=== PATIENT | male | born 1960 | race African-American/Black ===

== ENCOUNTER 2016-03-14 10:37 | Inpatient (IN) | payer OTHER ==
[2016-03-14 11:07] VITALS: BMI 25.7
--- NOTE | 2016-03-14 14:56 | HP ---
CIWA Score - CIWA Score Nausea/Vomitin-No Nausea/No Vomiting Muscle Tremors: 4-Moderate,w/Arms Extend Anxiety: 3 Agitation: 4-Moderately Restless Paroxysmal Sweats: 3 Orientation: 0-Oriented Tacttile Disturbances: 0-None Auditory Disturbances: 0-None Visual Disturbances: 0-None Headache: 1-Very Mild CIWA-Ar Total Score: 15 Admission ROS BHS - HPI Chief Complaint: I am here to detox. Allergies/Adverse Reactions: Allergies Allergy/AdvReac Type Severity Reaction Status Date / Time No Known Allergies Allergy Verified 03/14/16 11:37 History of Present Illness: pt is a 55yr old male with a history of alcohol and cocaine dependence seeking detox for treatment. pt is also on a mmtp gets 100mg last dose taken yesterday and verified of dose done. Exam Limitations: No Limitations - Ebola screening Have you traveled outside of the country in the last 21 days: No Have you had contact with anyone from an Ebola affected area: No Have you been sick,other than usual withdrawal symptoms: No - Review of Systems Constitutional: Chills, Diaphoresis, Loss of Appetite, Unintentional Wgt. Loss EENT: reports: No Symptoms Reported Respiratory: reports: No Symptoms reported Cardiac: reports: No Symptoms Reported GI: reports: Constipated, Poor Appetite, Poor Fluid Intake : reports: No Symptoms Reported Musculoskeletal: reports: Back Pain Integumentary: reports: Flushing, Sweating Neuro: reports: Headache, Tremors Endocrine: reports: Excessive Sweating, Flushing, Intolerance to Cold, Intolerance to Heat Hematology: reports: No Symptoms Reported Psychiatric: reports: No Sypmtoms Reported, Judgement Intact, Mood/Affect Appropiate, Orientated x3, Agitated, Anxious Other Systems: Reviewed and Negative Patient History - Patient Medical History Hx Anemia: No Hx Asthma: No Hx Chronic Obstructive Pulmonary Disease (COPD): No Hx Cancer: No Hx Cardiac Disorders: No Hx Congestive Heart Failure: No Hx Hypertension: Yes Hx Hypercholesterolemia: No Hx Pacemaker: No HX Cerebrovascular Accident: No Hx Seizures: No Hx Dementia: No Hx Diabetes: No Hx Gastrointestinal Disorders: Yes (acid reflux) Hx Liver Disease: No Hx Genitourinary Disorders: No Hx Sexually Transmitted Disorders: No Hx Renal Disease (ESRD): No Hx Thyroid Disease: No Hx Human Immunodeficiency Virus (HIV): No (03/28 last negative) Hx Hepatitis C: Yes (2004) Hx Depression: Yes Hx Suicide Attempt: No (denies) Hx Bipolar Disorder: Yes (no medication) Hx Schizophrenia: No - Patient Surgical History Past Surgical History: Yes Hx Neurologic Surgery: No Hx Cataract Extraction: No Hx Cardiac Surgery: No Hx Lung Surgery: No Hx Breast Surgery: No Hx Breast Biopsy: No Hx Abdominal Surgery: Yes (splenectomy at age 17) Hx Appendectomy: No Hx Cholecystectomy: No Hx Genitourinary Surgery: No Hx Section: No Hx Orthopedic Surgery: No Anesthesia Reaction: No - PPD History Previous Implant?: Yes Documented Results: Positive w/o proof PPD to be Administered?: No - Reproductive History Patient is a Female of Child Bearing Age (11 -55 yrs old): No - Smoking Cessation Smoking history: Current every day smoker Have you smoked in the past 12 months: Yes Aproximately how many cigarettes per day: 10 Hx Chewing Tobacco Use: No Initiated information on smoking cessation: Yes 'Breaking Loose' booklet given: 03/14/16 - Substance & Tx. History Hx Alcohol Use: Yes Hx Substance Use: Yes Substance Use Type: Alcohol, Cocaine Hx Substance Use Treatment: Yes - Substances Abused Cocaine Route: Inhalation Frequency: Daily Amount used: $30 Age of first use: 17 Date of Last Use: 03/13/16 Heroin Route: Inhalation Frequency: Daily Amount used: 2 bags Age of first use: 17 Date of Last Use: 03/13/16 Alcohol-beer/vodka Route: Oral Frequency: Daily Amount used: 2-6 pks./3 pts. Age of first use: 10 Date of Last Use: 03/13/16 Family Disease History - Family Disease History Family Disease History: Other: Father (alcohol,), Mother (alcohol, ) Admission Physical Exam BHS - Vital Signs Vital Signs: Vital Signs - 24 hr 03/14/16 11:01 Temperature 96.4 F L Pulse Rate 61 Respiratory 18 Rate Blood Pressure 154/96 - Physical General Appearance: Yes: Appropriately Dressed, Moderate Distress, Tremorous, Irritable, Sweating, Anxious HEENTM: Yes: Normal Voice, Nasal Congestion Respiratory: Yes: Lungs Clear, Normal Breath Sounds, No Respiratory Distress Neck: Yes: No masses,lesions,Nodules Breast: Yes: Within Normal Limits Cardiology: Yes: Regular Rhythm, Regular Rate, S1, S2 Abdominal: Yes: Normal Bowel Sounds, Soft Genitourinary: Yes: Within Normal Limits Back: Yes: Normal Inspection Musculoskeletal: Yes: full range of Motion Extremities: Yes: Normal Capillary Refill, Normal Inspection, Non-Tender, Tremors Neurological: Yes: Fully Oriented, Alert, Normal Response Integumentary: Yes: Normal Color, Diaphoresis Lymphatic: Yes: Within Normal Limits - Diagnostic (1) Alcohol dependence with uncomplicated withdrawal Current Visit: Yes Status: Chronic (2) Cocaine dependence Current Visit: Yes Status: Chronic Qualifiers: Substance use status: uncomplicated Qualified Code(s): F14.20 - Cocaine dependence, uncomplicated (3) GERD (gastroesophageal reflux disease) Current Visit: Yes Status: Chronic Qualifiers: Esophagitis presence: without esophagitis Qualified Code(s): K21.9 - Gastro-esophageal reflux disease without esophagitis (4) HTN (hypertension) Current Visit: Yes Status: Chronic Qualifiers: Hypertension type: essential hypertension Qualified Code(s): I10 - Essential (primary) hypertension (5) Hepatitis C Current Visit: Yes Status: Chronic Qualifiers: Viral hepatitis chronicity: chronic Hepatic coma status: without hepatic coma Qualified Code(s): B18.2 - Chronic viral hepatitis C (6) Methadone maintenance therapy patient Current Visit: Yes Status: Chronic Comment: dose verified with 100mg (7) Nicotine dependence Current Visit: Yes Status: Chronic Qualifiers: Nicotine product type: cigarettes Substance use status: uncomplicated Qualified Code(s): F17.210 - Nicotine dependence, cigarettes, uncomplicated (8) Positive PPD Current Visit: No Status: Chronic Cleared for Admission [facility] - Detox or Rehab [facility] Level of Care: Medically Managed Detox Regimen/Protocol: Librium [facility] Breath Alcohol Content Breath Alcohol Content: 0 Urine Drug Screen - Results Drug Screen Negative: No Urine Drug Screen Results: FAIZA-Cocaine, OPI-Opiates, MTD-Methadone
[2016-03-14] MEDS ORDERED: P-EPHED 60MG/TRIPROLIDI 2.5MG TABLET PO PRN (15:01)
[2016-03-14] MEDS ORDERED: hydrOXYzine PAMOATE 50 MG CAPSULE (FP) PO PRN (15:01)
[2016-03-14] MEDS ORDERED: MENTHOL/PHENOL 1 EACH UD MM PRN (15:01)
[2016-03-14] MEDS ORDERED: MAGNESIUM HYDROX 2400MG/30ML ORAL SUSPENSION 30 ML CUP PO PRN (15:01)
[2016-03-14] MEDS ORDERED: NICOTINE POLACRILEX 4 MG GUM BUC PRN (15:01)
[2016-03-14] MEDS ORDERED: MAG HYDROX/AL HYDROX/SIMETH 30 ML UNIT-DOSE CUP PO PRN (15:01)
[2016-03-14] MEDS ORDERED: MAGNESIUM CITRATE 300 ML BOTTLE PO PRN (15:01)
[2016-03-14] MEDS ORDERED: IBUPROFEN 400 MG TABLET (FP) PO PRN (15:01)
[2016-03-14] MEDS ORDERED: ACETAMINOPHEN 325 MG TABLET (FP) PO PRN (15:01)
[2016-03-14] MEDS ORDERED: LOPERAMIDE HCL 2 MG CAPSULE PO PRN (15:01)
[2016-03-14] MEDS ORDERED: chlordiazePOXIDE HCL 25 MG CAPSULE PO PRN (15:01)
[2016-03-14] MEDS ORDERED: guaiFENesin/D-METHORPHAN HB 10 ML UNIT-DOSE CUPS PO PRN (15:01)
[2016-03-14] MEDS ORDERED: METHADONE HCL 10 MG TABLET PO ONE (15:06)
[2016-03-14] MEDS ORDERED: chlordiazePOXIDE HCL 25 MG CAPSULE PO ONE (15:24)
[2016-03-14] MEDS ORDERED: METHADONE 80 MG, METHADONE 20 MG PO ONE (15:35)
[2016-03-14] MEDS ORDERED: METHADONE HCL 10 MG TABLET ONE (15:41)
[2016-03-14] MEDS ORDERED: METHADONE HCL 40 MG DISPERSABLE TABLET ONE (15:41)
[2016-03-14] MEDS: chlordiazePOXIDE HCL 25 MG CAPSULE PO SCH ×2 (18:29→22:57)
[2016-03-14 20:38] LABS: URINE APPEARANCE SLCLOUDY; URINE BILIRUBIN NEGATIVE (NEGATIVE); URINE BLOOD NEGATIVE (NEGATIVE); URINE COLOR YELLOW; URINE GLUCOSE (UA) NEGATIVE (NEGATIVE); URINE KETONE NEGATIVE (NEGATIVE); URINE LEUK ESTERASE NEGATIVE (NEGATIVE); URINE NITRITE NEGATIVE (NEGATIVE); URINE UROBILINOGEN 4.0 E.U/dl E.U./dl (0.2-1.0)
[2016-03-14 20:44] LABS: URINE PROTEIN 2+ (NEGATIVE)
[2016-03-14 20:47] LABS: URINE BACTERIA MANY /hpf (NONE SEEN); URINE HYALINE CAST 1 /lpf; URINE MUCUS FEW; URINE RBC 2 /hpf (0-3); URINE WBC 4 /hpf (3-5)
[2016-03-14] MEDS: THIAMINE HCL 100 MG TABLET (FP) PO SCH (22:57)
[2016-03-15] MEDS: chlordiazePOXIDE HCL 25 MG CAPSULE PO SCH ×4 (05:42→22:37)
[2016-03-15] MEDS ORDERED: METHADONE HCL 10 MG TABLET ONE (05:44)
[2016-03-15] MEDS: METHADONE 80 MG, METHADONE 20 MG PO SCH (05:45)
[2016-03-15] MEDS ORDERED: METHADONE HCL 40 MG DISPERSABLE TABLET ONE (05:45)
[2016-03-15] MEDS ORDERED: METHADONE HCL 40 MG DISPERSABLE TABLET PO SCH (06:00)
--- NOTE | 2016-03-15 08:03 | CONSULT ---
[facility] Psychiatric Consult - Data Date of interview: 03/15/16 Admission source: [facility] Identifying data: This is 55 years old male with history of Bipolar disorder, MMTP with current dose of 100mg poqd, intoxicated with: Alcohol, Heroin, Cocaine and Nicotine Substance Abuse History: - Smoking Cessation. Smoking history: Current every day smoker. Have you smoked in the past 12 months: Yes. Aproximately how many cigarettes per day: 10. Hx Chewing Tobacco Use: No. Initiated information on smoking cessation: Yes. 'Breaking Loose' booklet given: 03/14/16. - Substance & Tx. History. Hx Alcohol Use: Yes. Hx Substance Use: Yes. Substance Use Type : Alcohol, Cocaine. Hx Substance Use Treatment: Yes. - Substances Abused. Cocaine. Route: Inhalation. Frequency: Daily. Amount used: $30. Age of first use: 17. Date of Last Use: 03/13/16. Heroin. Route: Inhalation. Frequency: Daily. Amount used: 2 bags. Age of first use: 17. Date of Last Use : 03/13/16. Alcohol-beer/vodka. Route: Oral. Frequency: Daily. Amount used: 2-6 pks./3 pts. Age of first use: 10. Date of Last Use: 03/13/16 Medical History: GERD, HepC+, HTN, Positive history of PPD, mmtp 100mg per day Psychiatric History: As per computer patient has a history of Bipolar disorder and taking medications: Zoloft n50mg poqd. Seroquel 100mg poqd. At this point patient is oversedated and can not start his regular medications Physical/Sexual Abuse/Trauma History: Unclear Additional Comment: Observation. Detox Unit Care Protocol Mental Status Exam - Mental Status Exam Alert and Oriented to: Person Cognitive Function: Fair Patient Appearance: Unkempt Mood: Sad Affect: Flat Patient Behavior: Sedated Speech Pattern: Delayed Voice Loudness: Severely Soft/Quiet Thought Process: Circumstantial, Tangential Thought Disorder: Present Hallucinations: Denies Suicidal Ideation: Denies Homicidal Ideation: Denies Insight/Judgement: Impaired Sleep: Difficulty falling asleep Appetite: Weight loss Muscle strength/Tone: Moderate Hypotonicity Gait/Station: Deferred Additional Comments: Observation. Detox Unit Care Protocol. Zoloft n50mg poqd. Seroquel 100mg poqd. At this point patient is oversedated and can not start his regular medications Psychiatric Findings - Problem List ([place] 1, 2,3) (1) Alcohol dependence with uncomplicated withdrawal Current Visit: Yes Status: Chronic (2) Cocaine dependence Current Visit: Yes Status: Chronic Qualifiers: Substance use status: uncomplicated Qualified Code(s): F14.20 - Cocaine dependence, uncomplicated (3) Methadone maintenance therapy patient Current Visit: Yes Status: Chronic Comment: dose verified with 100mg (4) Nicotine dependence Current Visit: Yes Status: Chronic Qualifiers: Nicotine product type: cigarettes Substance use status: uncomplicated Qualified Code(s): F17.210 - Nicotine dependence, cigarettes, uncomplicated (5) Bipolar disorder Current Visit: Yes Status: Acute - Initial Treatment Plan Initial Treatment Plan: Observation. Detox Unit Care Protocol. Zoloft n50mg poqd. Seroquel 100mg poqd. At this point patient is oversedated and can not start his regular medications
[2016-03-15 10:12] LABS: MCHC 33.6 g/dl (32.0-35.9); MEAN CELL VOLUME 89.2 fl (80-96); MEAN PLT VOLUME 7.9 fl (7.5-11.1); PLATELET COUNT 367 K/MM3 (134-434); RDW 13.5 % (11.9-15.9); WHITE BLOOD COUNT 7.2 K/mm3 (4.0-10.0)
[2016-03-15] MEDS: PRENATAL VITAMINS W/ FOLIC ACID TABLET (FP) PO SCH (10:25)
[2016-03-15] MEDS: LISINOPRIL 10 MG TABLET (FP) PO SCH (10:25)
[2016-03-15] MEDS: NICOTINE 21 MG/24 HOURS TOPICAL PATCH TD SCH (10:26)
[2016-03-15] MEDS: amLODIPine BESYLATE 5 MG TABLET (FP) PO SCH (10:26)
--- NOTE | 2016-03-15 10:36 | PN ---
S CIWA - CIWA Score Nausea/Vomitin-No Nausea/No Vomiting Muscle Tremors: 4-Moderate,w/Arms Extend Anxiety: 3 Agitation: 4-Moderately Restless Paroxysmal Sweats: 3 Orientation: 0-Oriented Tacttile Disturbances: 0-None Auditory Disturbances: 0-None Visual Disturbances: 0-None Headache: 0-None Present CIWA-Ar Total Score: 14 BHS Progress Note (SOAP) Subjective: sleepy interrupted sleep irritable agitation sweats Objective: 03/15/16 10:34 Vital Signs Temperature 97.9 F 03/15/16 09:32 Pulse Rate 55 L 03/15/16 09:32 Respiratory Rate 18 03/15/16 09:32 Blood Pressure 125/64 03/15/16 09:32 O2 Sat by Pulse Oximetry (%) Laboratory Tests 03/14/16 03/15/16 14:00 06:00 WBC 7.2 RBC 4.48 Hgb 13.4 Hct 40.0 MCV 89.2 MCHC 33.6 RDW 13.5 Plt Count 367 MPV 7.9 Urine Color Yellow Urine Appearance Slcloudy Urine pH 5.0 Ur Specific [place] 1.025 Urine Protein 2+ H Urine Glucose (UA) Negative Urine Ketones Negative Urine Blood Negative Urine Nitrite Negative Urine Bilirubin Negative Urine Urobilinogen 4.0 e.u/dl Ur Leukocyte Esterase Negative Urine RBC 2 Urine WBC 4 Ur Epithelial Cells Rare Urine Bacteria Many Hyaline Casts 1 Urine Mucus Few awake/alert ambulating no acute distress labs pending Assessment: 03/15/16 10:35 withdrawal sx Plan: continue detox increase fluids labs pending
[2016-03-15 10:53] LABS: ALBUMIN 3.2 g/dl (3.4-5.0); ALK PHOS 132 U/L (45-117); ANION GAP 11 (8-16); BILIRUBIN,TOTAL 0.3 mg/dL (0.2-1.0); CALCIUM 8.8 mg/dL (8.5-10.1); CO2 28 mmol/L (21-32); CREATININE 0.9 mg/dL (0.7-1.3); GLUCOSE,RANDOM 133 mg/dL (74-106); SGOT/AST 47 U/L (15-37); SGPT/ALT 45 U/L (12-78); TOT PROT 7.7 g/dl (6.4-8.2)
--- NOTE | 2016-03-15 17:39 | EKG ---
Test Reason : Blood Pressure : / mmHG Vent. Rate : 056 BPM Atrial Rate : 056 BPM P-R Int : 180 ms QRS Dur : 090 ms QT Int : 492 ms P-R-T Axes : 028 026 174 degrees QTc Int : 474 ms SINUS BRADYCARDIA T WAVE ABNORMALITY, CONSIDER ANTEROLATERAL ISCHEMIA PROLONGED QT ABNORMAL ECG NO PREVIOUS ECGS AVAILABLE Confirmed by GEORGE SOTO MD ([id number]) on 03/15/2016 5:39:14 PM Referred By: Confirmed By:GEORGE SOTO MD
[2016-03-15] MEDS: THIAMINE HCL 100 MG TABLET (FP) PO SCH (22:37)
[2016-03-16] MEDS ORDERED: METHADONE HCL 10 MG TABLET ONE (04:21)
[2016-03-16] MEDS ORDERED: METHADONE HCL 40 MG DISPERSABLE TABLET ONE (04:21)
[2016-03-16] MEDS: METHADONE 80 MG, METHADONE 20 MG PO SCH (05:32)
[2016-03-16] MEDS: chlordiazePOXIDE HCL 25 MG CAPSULE PO SCH ×2 (05:32→10:31)
[2016-03-16] MEDS: amLODIPine BESYLATE 5 MG TABLET (FP) PO SCH (10:29)
[2016-03-16] MEDS: LISINOPRIL 10 MG TABLET (FP) PO SCH (10:29)
[2016-03-16] MEDS: NICOTINE 21 MG/24 HOURS TOPICAL PATCH TD SCH (10:29)
[2016-03-16] MEDS: PRENATAL VITAMINS W/ FOLIC ACID TABLET (FP) PO SCH (10:29)
--- NOTE | 2016-03-16 11:15 | PN ---
S CIWA - CIWA Score Nausea/Vomitin Muscle Tremors: 3 Anxiety: 2 Agitation: 2 Paroxysmal Sweats: 1-Minimal Palms Moist Orientation: 0-Oriented Tacttile Disturbances: 1-Very Mild Itch/Numbness Auditory Disturbances: 1-Very Mild Visual Disturbances: 1-Very Mild Sensitivity Headache: 2-Mild CIWA-Ar Total Score: 16 S Progress Note (SOAP) Subjective: ALERT,IRRITABLE,ANXIOUS,INTERRUPTED SLEEP,TREMOR Objective: 03/16/16 11:13 Vital Signs Temperature 97.5 F L 03/16/16 06:00 Pulse Rate 44 L 03/16/16 06:00 Respiratory Rate 18 03/16/16 06:00 Blood Pressure 136/72 03/16/16 06:00 O2 Sat by Pulse Oximetry (%) Laboratory Last Values WBC 7.2 K/mm3 (4.0-10.0) 03/15/16 06:00 RBC 4.48 M/mm3 (4.00-5.60) 03/15/16 06:00 Hgb 13.4 GM/dL (11.7-16.9) 03/15/16 06:00 Hct 40.0 % (35.4-49) 03/15/16 06:00 MCV 89.2 fl (80-96) 03/15/16 06:00 MCHC 33.6 g/dl (32.0-35.9) 03/15/16 06:00 RDW 13.5 % (11.9-15.9) 03/15/16 06:00 Plt Count 367 K/MM3 (134-434) 03/15/16 06:00 MPV 7.9 fl (7.5-11.1) 03/15/16 06:00 Sodium 142 mmol/L (136-145) 03/15/16 06:00 Potassium 4.2 mmol/L (3.5-5.1) 03/15/16 06:00 Chloride 103 mmol/L (98-107) 03/15/16 06:00 Carbon Dioxide 28 mmol/L (21-32) 03/15/16 06:00 Anion Gap 11 (8-16) 03/15/16 06:00 BUN 14 mg/dL (7-18) 03/15/16 06:00 Creatinine 0.9 mg/dL (0.7-1.3) 03/15/16 06:00 Creat Clearance w eGFR > 60 (>60) 03/15/16 06:00 Random Glucose 133 mg/dL (74-106) H D 03/15/16 06:00 Calcium 8.8 mg/dL (8.5-10.1) 03/15/16 06:00 Total Bilirubin 0.3 mg/dL (0.2-1.0) 03/15/16 06:00 AST 47 U/L (15-37) H 03/15/16 06:00 ALT 45 U/L (12-78) 03/15/16 06:00 Alkaline Phosphatase 132 U/L (45-117) H 03/15/16 06:00 Total Protein 7.7 g/dl (6.4-8.2) D 03/15/16 06:00 Albumin 3.2 g/dl (3.4-5.0) L 03/15/16 06:00 Urine Color Yellow 03/14/16 14:00 Urine Appearance Slcloudy 03/14/16 14:00 Urine pH 5.0 (5.0-8.0) 03/14/16 14:00 Ur Specific [place] 1.025 (1.001-1.035) 03/14/16 14:00 Urine Protein 2+ (NEGATIVE) H 03/14/16 14:00 Urine Glucose (UA) Negative (NEGATIVE) 03/14/16 14:00 Urine Ketones Negative (NEGATIVE) 03/14/16 14:00 Urine Blood Negative (NEGATIVE) 03/14/16 14:00 Urine Nitrite Negative (NEGATIVE) 03/14/16 14:00 Urine Bilirubin Negative (NEGATIVE) 03/14/16 14:00 Urine Urobilinogen 4.0 e.u/dl E.U./dl (0.2-1.0) 03/14/16 14:00 Ur Leukocyte Esterase Negative (NEGATIVE) 03/14/16 14:00 Urine RBC 2 /hpf (0-3) 03/14/16 14:00 Urine WBC 4 /hpf (3-5) 03/14/16 14:00 Ur Epithelial Cells Rare /hpf (FEW) 03/14/16 14:00 Urine Bacteria Many /hpf (NONE SEEN) 03/14/16 14:00 Hyaline Casts 1 /lpf 03/14/16 14:00 Urine Mucus Few 03/14/16 14:00 RPR Titer Nonreactive (NONREACTIVE) 03/15/16 06:00 Assessment: 03/16/16 11:14 WITHDRAWAL SYMPTOM Plan: CONTINUE DETOX,INITIAL GLUCOSE IS 133,BGM MONITORING,
[2016-03-16] MEDS: chlordiazePOXIDE 5 MG CAPSULE PO SCH ×2 (17:23→22:18)
[2016-03-16] MEDS: THIAMINE HCL 100 MG TABLET (FP) PO SCH (22:18)
[2016-03-16] MEDS: diphenhydrAMINE HCL 50 MG CAPSULE PO PRN (22:18)
[2016-03-17] MEDS: chlordiazePOXIDE 5 MG CAPSULE PO SCH ×2 (05:40→10:47)
[2016-03-17] MEDS ORDERED: METHADONE HCL 40 MG DISPERSABLE TABLET ONE (08:13)
[2016-03-17] MEDS ORDERED: METHADONE HCL 10 MG TABLET ONE (08:13)
[2016-03-17] MEDS: PRENATAL VITAMINS W/ FOLIC ACID TABLET (FP) PO SCH (10:45)
[2016-03-17] MEDS: METHADONE 80 MG, METHADONE 20 MG PO SCH (10:46)
[2016-03-17] MEDS: NICOTINE 21 MG/24 HOURS TOPICAL PATCH TD SCH (10:46)
[2016-03-17] MEDS: amLODIPine BESYLATE 5 MG TABLET (FP) PO SCH (10:46)
[2016-03-17] MEDS: LISINOPRIL 10 MG TABLET (FP) PO SCH (10:46)
--- NOTE | 2016-03-17 11:58 | PN ---
BHS Progress Note (SOAP) Subjective: ALERT,IRRITABLE,ANXIOUS,INTERRUPTED SLEEP Objective: 03/17/16 11:57 Vital Signs Temperature 96.9 F L 03/17/16 10:01 Pulse Rate 91 H 03/17/16 10:01 Respiratory Rate 16 03/17/16 10:01 Blood Pressure 131/83 03/17/16 10:01 O2 Sat by Pulse Oximetry (%) Assessment: 03/17/16 11:57 Vital Signs Temperature 96.9 F L 03/17/16 10:01 Pulse Rate 91 H 03/17/16 10:01 Respiratory Rate 16 03/17/16 10:01 Blood Pressure 131/83 03/17/16 10:01 O2 Sat by Pulse Oximetry (%) 03/17/16 11:57 WITHDRAWAL SYMPTOM Plan: CONTINUE DETOX,DISCHARGE IN AM
[2016-03-17] MEDS: chlordiazePOXIDE HCL 10 MG CAPSULE PO SCH ×2 (17:55→22:35)
[2016-03-17] MEDS: THIAMINE HCL 100 MG TABLET (FP) PO SCH (22:35)
[2016-03-17] MEDS: diphenhydrAMINE HCL 50 MG CAPSULE PO PRN (22:36)
[2016-03-18] MEDS ORDERED: METHADONE HCL 10 MG TABLET ONE (04:57)
[2016-03-18] MEDS ORDERED: METHADONE HCL 40 MG DISPERSABLE TABLET ONE (04:57)
[2016-03-18] MEDS: chlordiazePOXIDE HCL 10 MG CAPSULE PO SCH ×2 (05:56→10:35)
[2016-03-18] MEDS: METHADONE 80 MG, METHADONE 20 MG PO SCH (05:56)
--- NOTE | 2016-03-18 09:52 | PN ---
S Progress Note (SOAP) Subjective: ALERT,NO COMPLAINT Objective: 03/18/16 09:50 Vital Signs Temperature 97.5 F L 03/18/16 07:42 Pulse Rate 69 03/18/16 07:42 Respiratory Rate 18 03/18/16 07:42 Blood Pressure 124/72 03/18/16 07:42 O2 Sat by Pulse Oximetry (%) Assessment: 03/18/16 09:51 DETOX COMPLETED,NO WITHDRAWAL SYMPTOM Plan: DISCHARGE TODAY,FOLLOW UP WITH [facility]
--- NOTE | 2016-03-18 09:56 | DS ---
[facility] Detox Discharge Summary Admission Date: 03/14/16 Discharge Date: 03/18/16 - History Present History: Alcohol Dependence, Cocaine Dependence, MMTP Additional Comments: FOLLOW UP WITH AFTER CARE PROGRAM ,[facility] Pertinent Past History: GERD HYPERTENSION HEPATITIS C POSITIVE PPD NICOTINE DEPENDENCE - Physical Exam Results Vital Signs: Vital Signs Temperature 97.5 F L 03/18/16 07:42 Pulse Rate 69 03/18/16 07:42 Respiratory Rate 18 03/18/16 07:42 Blood Pressure 124/72 03/18/16 07:42 O2 Sat by Pulse Oximetry (%) Pertinent Admission Physical Exam Findings: WITHDRAWAL SYMPTOM - Treatment Hospital Course: Detox Protocol Followed, Detoxed Safely, Responded well, Discharged Condition Good, Rehab Referral Accepted Patient has Accepted a Rehab Referral to: [facility] - Medication Discharge Medications: Ambulatory Orders Esomeprazole Mag Trihydrate [Nexium] 20 mg PO DAILY #30 capsule. 10/25/14 Sertraline HCl [Zoloft -] 50 mg PO DAILY #30 tablet 10/25/14 Amlodipine Besylate [Norvasc -] 5 mg PO DAILY #30 tablet 07/18/15 Lisinopril [Prinivil] 10 mg PO DAILY #30 tablet 07/18/15 Quetiapine Fumarate [Seroquel] 100 tab PO HS #30 tablet 07/18/15 - AMA Did Patient Leave Against Medical Advice: No
[2016-03-18] MEDS ORDERED: PANTOPRAZOLE 40 MG TABLET (FP) PO SCH (10:00)
[2016-03-18] MEDS: LISINOPRIL 10 MG TABLET (FP) PO SCH (10:35)
[2016-03-18] MEDS: amLODIPine BESYLATE 5 MG TABLET (FP) PO SCH (10:35)
[2016-03-18] MEDS: PRENATAL VITAMINS W/ FOLIC ACID TABLET (FP) PO SCH (10:35)
[2016-03-18] MEDS: NICOTINE 21 MG/24 HOURS TOPICAL PATCH TD SCH (10:35)
[2016-03-18 18:17] VITALS: BP 116/58; PULSE 48; TEMP 98.4
== END 2016-03-18 17:20 | disposition other institution (70) | DRG 773 ==
LOC: YASAS 10:37 → Y6N 13:12
PROVIDERS: ADMIT Internal Medicine; ATTEND Internal Medicine
PROC: HZ2ZZZZ Detoxification Services for Substance Abuse Treatment (ICD-10-PCS; principal; 2016-03-18)
DX: F11.20 Opioid dependence, uncomplicated (principal); F10.230 Alcohol dependence with withdrawal, uncomplicated; F14.20 Cocaine dependence, uncomplicated; F17.210 Nicotine dependence, cigarettes, uncomplicated; F31.9 Bipolar disorder, unspecified; B18.2 Chronic viral hepatitis C; I10 Essential (primary) hypertension; K21.9 Gastro-esophageal reflux disease without esophagitis; R76.11 Nonspecific reaction to tuberculin skin test without active tuberculosis
CPT/HCPCS: 36415; 71020-TC; 80053; 81003; 81015; 85027; 86593; 93005; 93010

== ENCOUNTER 2016-03-18 17:08 | Inpatient (IN) | payer OTHER ==
[2016-03-18] MEDS ORDERED: P-EPHED 60MG/TRIPROLIDI 2.5MG TABLET PO PRN (18:43)
[2016-03-18] MEDS ORDERED: LOPERAMIDE HCL 2 MG CAPSULE PO PRN (18:43)
[2016-03-18] MEDS ORDERED: MENTHOL/PHENOL 1 EACH UD MM PRN (18:43)
[2016-03-18] MEDS ORDERED: guaiFENesin/D-METHORPHAN HB 10 ML UNIT-DOSE CUPS PO PRN (18:43)
[2016-03-18] MEDS ORDERED: MAGNESIUM HYDROX 2400MG/30ML ORAL SUSPENSION 30 ML CUP PO PRN (18:43)
[2016-03-18] MEDS ORDERED: ACETAMINOPHEN 325 MG TABLET (FP) PO PRN (18:43)
[2016-03-18] MEDS ORDERED: hydrOXYzine PAMOATE 50 MG CAPSULE (FP) PO PRN (18:43)
[2016-03-18] MEDS ORDERED: MAGNESIUM CITRATE 300 ML BOTTLE PO PRN (18:43)
[2016-03-18] MEDS ORDERED: MAG HYDROX/AL HYDROX/SIMETH 30 ML UNIT-DOSE CUP PO PRN (18:43)
[2016-03-18] MEDS ORDERED: NICOTINE POLACRILEX 2 MG GUM BUC PRN (18:47)
[2016-03-18] MEDS: THIAMINE HCL 100 MG TABLET (FP) PO SCH (22:01)
[2016-03-18] MEDS: QUEtiapine FUMARATE 100 MG TABLET (FP) PO SCH (22:02)
[2016-03-19] MEDS ORDERED: METHADONE 80 MG, METHADONE 20 MG PO SCH (06:00)
[2016-03-19] MEDS ORDERED: METHADONE HCL 10 MG TABLET PO SCH (06:00)
[2016-03-19] MEDS ORDERED: METHADONE HCL 40 MG DISPERSABLE TABLET ONE (07:08)
[2016-03-19] MEDS ORDERED: METHADONE HCL 10 MG TABLET ONE (07:09)
--- NOTE | 2016-03-19 11:54 | PN ---
[place] Progress Note Note: patient is drowsy,alter mental status Vital Signs Temperature 98.4 F 03/19/16 07:01 Pulse Rate 46 L 03/19/16 11:46 Respiratory Rate 12 03/19/16 11:46 Blood Pressure 76/49 03/19/16 11:46 O2 Sat by Pulse Oximetry (%) on methadone maintenance 100 mgs/day treatment cbc,cmp,ammonia level hold amlodipine and lisinopril close monitoring reduced methadone to 50 mgs po daily from 02/18/16
[2016-03-19] MEDS: amLODIPine BESYLATE 5 MG TABLET (FP) PO SCH (12:29)
[2016-03-19] MEDS: LISINOPRIL 10 MG TABLET (FP) PO SCH (12:29)
[2016-03-19] MEDS: PRENATAL VITAMINS W/ FOLIC ACID TABLET (FP) PO SCH (12:29)
[2016-03-19] MEDS: PANTOPRAZOLE 40 MG TABLET (FP) PO SCH (12:29)
[2016-03-19] MEDS: SERTRALINE HCL 50 MG TABLET (FP) PO SCH (12:29)
[2016-03-19 14:12] LABS: MCH 29.1 pg (25.7-33.7); MCHC 32.7 g/dl (32.0-35.9); MEAN PLT VOLUME 7.3 fl (7.5-11.1); PLATELET COUNT 341 K/MM3 (134-434); RDW 13.9 % (11.9-15.9); WHITE BLOOD COUNT 6.1 K/mm3 (4.0-10.0)
[2016-03-19 14:37] LABS: ALBUMIN 2.8 g/dl (3.4-5.0); ALK PHOS 105 U/L (45-117); ANION GAP 10 (8-16); BILIRUBIN,TOTAL 0.3 mg/dL (0.2-1.0); CALCIUM 8.9 mg/dL (8.5-10.1); CO2 26 mmol/L (21-32); GLUCOSE,RANDOM 105 mg/dL (74-106); SGOT/AST 46 U/L (15-37); SGPT/ALT 39 U/L (12-78); TOT PROT 7.1 g/dl (6.4-8.2)
--- NOTE | 2016-03-19 15:20 | PN ---
S Progress Note Note: The law writer approached to the patient today twice for the admission but patient is very sedated and unable to stand on his own, patient will be assess when is more alert.
[2016-03-19] MEDS: THIAMINE HCL 100 MG TABLET (FP) PO SCH (21:59)
[2016-03-19] MEDS: QUEtiapine FUMARATE 100 MG TABLET (FP) PO SCH (22:01)
[2016-03-20] MEDS ORDERED: METHADONE HCL 10 MG TABLET ONE (03:14)
[2016-03-20] MEDS ORDERED: METHADONE HCL 40 MG DISPERSABLE TABLET ONE (03:14)
[2016-03-20] MEDS ORDERED: METHADONE HCL 10 MG TABLET PO SCH (06:00)
[2016-03-20] MEDS: METHADONE 40 MG, METHADONE 10 MG PO SCH (06:35)
[2016-03-20] MEDS: PRENATAL VITAMINS W/ FOLIC ACID TABLET (FP) PO SCH (10:35)
[2016-03-20] MEDS: LISINOPRIL 10 MG TABLET (FP) PO SCH (10:35)
[2016-03-20] MEDS: PANTOPRAZOLE 40 MG TABLET (FP) PO SCH (10:35)
[2016-03-20] MEDS: amLODIPine BESYLATE 5 MG TABLET (FP) PO SCH (10:35)
[2016-03-20] MEDS: SERTRALINE HCL 50 MG TABLET (FP) PO SCH (10:35)
--- NOTE | 2016-03-20 11:57 | PN ---
[facility] Progress Note Note: alert,oriented x 3 much improved Laboratory Last Values WBC 6.1 K/mm3 (4.0-10.0) 03/19/16 12:25 RBC 4.47 M/mm3 (4.00-5.60) 03/19/16 12:25 Hgb 13.0 GM/dL (11.7-16.9) 03/19/16 12:25 Hct 39.8 % (35.4-49) 03/19/16 12:25 MCV 89.0 fl (80-96) 03/19/16 12:25 MCHC 32.7 g/dl (32.0-35.9) 03/19/16 12:25 RDW 13.9 % (11.9-15.9) 03/19/16 12:25 Plt Count 341 K/MM3 (134-434) 03/19/16 12:25 MPV 7.3 fl (7.5-11.1) L 03/19/16 12:25 Sodium 142 mmol/L (136-145) 03/19/16 12:25 Potassium 4.7 mmol/L (3.5-5.1) 03/19/16 12:25 Chloride 106 mmol/L (98-107) 03/19/16 12:25 Carbon Dioxide 26 mmol/L (21-32) 03/19/16 12:25 Anion Gap 10 (8-16) 03/19/16 12:25 BUN 17 mg/dL (7-18) D 03/19/16 12:25 Creatinine 1.0 mg/dL (0.7-1.3) 03/19/16 12:25 Creat Clearance w eGFR > 60 (>60) 03/19/16 12:25 POC Glucometer 101 UNITS (()) 03/20/16 06:42 Random Glucose 105 mg/dL (74-106) D 03/19/16 12:25 Calcium 8.9 mg/dL (8.5-10.1) 03/19/16 12:25 Total Bilirubin 0.3 mg/dL (0.2-1.0) 03/19/16 12:25 AST 46 U/L (15-37) H 03/19/16 12:25 ALT 39 U/L (12-78) 03/19/16 12:25 Alkaline Phosphatase 105 U/L (45-117) D 03/19/16 12:25 Ammonia 37.98 umol/L (11-32) H 03/19/16 12:25 Total Protein 7.1 g/dl (6.4-8.2) 03/19/16 12:25 Albumin 2.8 g/dl (3.4-5.0) L 03/19/16 12:25 encourage oral fluid and ensure plus 120 po bid closed monitoring
--- NOTE | 2016-03-20 14:09 | HP ---
Psychiatrist Admission - Data Date of interview: 03/20/16 Identifying data: This is one of the several admissions for this 55 year old single black male unemployed and supported on wellfare. Medical History: HTN, GERD, Hep C and S/P traumatic Splenectomy, on MMTP 100 mg decreased to 50 due to sedation, smokes 10 cigarettes daily. Psychiatric History: Patient reports no history of psychiatric hospitalizations , states he has anxiety and depression and treated with Zoloft 50 mg po daily and Seroquel 100 mg po hs, seen by and continued medication. While at [facility]N patient was very sedated, today patient is more alert and was seen in groups, but during the evaluation patients responce was slow, he was falling into the sleep. Physical/Sexual Abuse/Trauma History: Denies history of abuse. Vital Signs: Vital Signs - 24 hr 03/19/16 03/20/16 03/20/16 21:00 00:42 03:30 Temperature Pulse Rate 53 L Respiratory 18 20 Rate Blood Pressure 113/62 03/20/16 06:59 Temperature 99.0 F Pulse Rate 57 L Respiratory 18 Rate Blood Pressure 140/80 Allergies/Adverse Reactions: Allergies Allergy/AdvReac Type Severity Reaction Status Date / Time No Known Allergies Allergy Verified 03/14/16 11:37 Date of last physical exam: 03/14/16 Concur with the findings of this exam: Yes - Substance Abuse/Tx History Hx Alcohol Use: Yes Hx Substance Use: Yes Substance Use Type: Alcohol ( 2-6 pks./3 pts), Cocaine ($30 daily), Heroin (1-2 bags a day) Hx Substance Use Treatment: Yes - Admission Criteria Previous failed treatment: Yes Poor recovery environment: Yes Comorbidities: Yes Lacks judgement: Yes Mental Status Exam - Mental Status Exam Alert and Oriented to: Place, Person Cognitive Function: Impaired Patient Appearance: Well Groomed Mood: Anxious Affect: Flat, Blunted Patient Behavior: Fatigued, Asleep Speech Pattern: Delayed Voice Loudness: Mildly Soft/Quiet Thought Process: Goal Oriented Thought Disorder: Not Present Hallucinations: Denies Suicidal Ideation: Denies Homicidal Ideation: Denies Insight/Judgement: Fair Sleep: Fair Appetite: Fair Muscle strength/Tone: Normal Gait/Station: Normal Psychiatric Findings - Problem List (Independence 1, 2,3) (1) Cocaine dependence Current Visit: No Status: Chronic Qualifiers: Substance use status: uncomplicated Qualified Code(s): F14.20 - Cocaine dependence, uncomplicated (2) GERD (gastroesophageal reflux disease) Current Visit: No Status: Chronic Qualifiers: Esophagitis presence: without esophagitis Qualified Code(s): K21.9 - Gastro-esophageal reflux disease without esophagitis (3) HTN (hypertension) Current Visit: No Status: Chronic Qualifiers: Hypertension type: essential hypertension Qualified Code(s): I10 - Essential (primary) hypertension (4) Hepatitis C Current Visit: No Status: Chronic Qualifiers: Viral hepatitis chronicity: chronic Hepatic coma status: without hepatic coma Qualified Code(s): B18.2 - Chronic viral hepatitis C (5) Nicotine dependence Current Visit: No Status: Chronic Qualifiers: Nicotine product type: cigarettes Substance use status: uncomplicated Qualified Code(s): F17.210 - Nicotine dependence, cigarettes, uncomplicated (6) Opioid dependence Current Visit: Yes Status: Acute (7) Alcohol dependence Current Visit: Yes Status: Acute (8) KUSH (generalized anxiety disorder) Current Visit: Yes Status: Acute (9) Mood disorder Current Visit: Yes Status: Acute - Initial Treatment Plan Initial Treatment Plan: Due to sedation it was recommended to d/c Seroquel , patient agreed, continue Zoloft, monitor progress as needed.
[2016-03-20] MEDS: THIAMINE HCL 100 MG TABLET (FP) PO SCH (21:28)
[2016-03-20] MEDS: diphenhydrAMINE HCL 50 MG CAPSULE PO PRN (21:30)
[2016-03-21] MEDS ORDERED: METHADONE HCL 10 MG TABLET ONE (05:49)
[2016-03-21] MEDS ORDERED: METHADONE HCL 40 MG DISPERSABLE TABLET ONE (05:49)
[2016-03-21] MEDS: METHADONE 40 MG, METHADONE 10 MG PO SCH (06:25)
[2016-03-21] MEDS: amLODIPine BESYLATE 5 MG TABLET (FP) PO SCH (10:25)
[2016-03-21] MEDS: SERTRALINE HCL 50 MG TABLET (FP) PO SCH (10:25)
[2016-03-21] MEDS: LISINOPRIL 10 MG TABLET (FP) PO SCH (10:25)
[2016-03-21] MEDS: PRENATAL VITAMINS W/ FOLIC ACID TABLET (FP) PO SCH (10:25)
[2016-03-21] MEDS: PANTOPRAZOLE 40 MG TABLET (FP) PO SCH (10:25)
[2016-03-21] MEDS: diphenhydrAMINE HCL 50 MG CAPSULE PO PRN (21:11)
[2016-03-21] MEDS: THIAMINE HCL 100 MG TABLET (FP) PO SCH (21:11)
[2016-03-22] MEDS: diphenhydrAMINE HCL 50 MG CAPSULE PO PRN ×2 (00:41→21:27)
[2016-03-22] MEDS: IBUPROFEN 400 MG TABLET (FP) PO PRN (02:52)
[2016-03-22] MEDS ORDERED: METHADONE HCL 40 MG DISPERSABLE TABLET ONE (03:20)
[2016-03-22] MEDS ORDERED: METHADONE HCL 10 MG TABLET ONE (03:20)
[2016-03-22] MEDS: METHADONE 40 MG, METHADONE 10 MG PO SCH (06:08)
--- NOTE | 2016-03-22 10:04 | PN ---
S Progress Note Note: ALERT,WOULD LIKE TO INCREASE METHADONE METHADONE INCREASE GRADUALLY 10 MGS MORE EACH DAY,UNTIL 100 MGS PO DAILTY OLD INJURY TO RIGHT ANKLE REQUESTING EDGAR BANDAGE, CONTINUE MONITORING
[2016-03-22] MEDS: PRENATAL VITAMINS W/ FOLIC ACID TABLET (FP) PO SCH (10:06)
[2016-03-22] MEDS: PANTOPRAZOLE 40 MG TABLET (FP) PO SCH (10:06)
[2016-03-22] MEDS: SERTRALINE HCL 50 MG TABLET (FP) PO SCH (10:06)
[2016-03-22] MEDS: LISINOPRIL 10 MG TABLET (FP) PO SCH (10:08)
[2016-03-22] MEDS: amLODIPine BESYLATE 5 MG TABLET (FP) PO SCH (10:08)
[2016-03-22] MEDS: THIAMINE HCL 100 MG TABLET (FP) PO SCH (21:26)
[2016-03-23] MEDS ORDERED: METHADONE HCL 40 MG DISPERSABLE TABLET ONE (04:40)
[2016-03-23] MEDS ORDERED: METHADONE HCL 10 MG TABLET ONE (04:41)
[2016-03-23] MEDS ORDERED: METHADONE 40 MG, METHADONE 20 MG PO ONE (06:00)
[2016-03-23] MEDS ORDERED: METHADONE HCL 10 MG TABLET PO ONE ×2 (06:00)
[2016-03-23] MEDS: amLODIPine BESYLATE 5 MG TABLET (FP) PO SCH (09:57)
[2016-03-23] MEDS: SERTRALINE HCL 50 MG TABLET (FP) PO SCH (09:57)
[2016-03-23] MEDS: PANTOPRAZOLE 40 MG TABLET (FP) PO SCH (09:58)
[2016-03-23] MEDS: PRENATAL VITAMINS W/ FOLIC ACID TABLET (FP) PO SCH (09:58)
[2016-03-23] MEDS: LISINOPRIL 10 MG TABLET (FP) PO SCH (09:58)
[2016-03-23] MEDS: diphenhydrAMINE HCL 50 MG CAPSULE PO PRN (21:36)
[2016-03-23] MEDS: THIAMINE HCL 100 MG TABLET (FP) PO SCH (21:36)
[2016-03-24] MEDS ORDERED: METHADONE HCL 40 MG DISPERSABLE TABLET ONE (03:26)
[2016-03-24] MEDS ORDERED: METHADONE HCL 10 MG TABLET ONE (03:27)
[2016-03-24] MEDS ORDERED: METHADONE 40 MG, METHADONE 30 MG PO ONE (06:00)
[2016-03-24] MEDS ORDERED: METHADONE HCL 10 MG TABLET PO ONE (06:00)
[2016-03-24] MEDS: PRENATAL VITAMINS W/ FOLIC ACID TABLET (FP) PO SCH (10:07)
[2016-03-24] MEDS: SERTRALINE HCL 50 MG TABLET (FP) PO SCH (10:07)
[2016-03-24] MEDS: LISINOPRIL 10 MG TABLET (FP) PO SCH (10:07)
[2016-03-24] MEDS: PANTOPRAZOLE 40 MG TABLET (FP) PO SCH (10:08)
[2016-03-24] MEDS: amLODIPine BESYLATE 5 MG TABLET (FP) PO SCH (10:08)
[2016-03-24] MEDS: THIAMINE HCL 100 MG TABLET (FP) PO SCH (21:44)
[2016-03-24] MEDS: diphenhydrAMINE HCL 50 MG CAPSULE PO PRN (21:45)
[2016-03-25] MEDS ORDERED: METHADONE HCL 40 MG DISPERSABLE TABLET PO ONE (06:00)
[2016-03-25] MEDS: PANTOPRAZOLE 40 MG TABLET (FP) PO SCH (09:56)
[2016-03-25] MEDS: PRENATAL VITAMINS W/ FOLIC ACID TABLET (FP) PO SCH (09:56)
[2016-03-25] MEDS: amLODIPine BESYLATE 5 MG TABLET (FP) PO SCH (09:56)
[2016-03-25] MEDS: LISINOPRIL 10 MG TABLET (FP) PO SCH (09:57)
[2016-03-25] MEDS: SERTRALINE HCL 50 MG TABLET (FP) PO SCH (09:58)
[2016-03-25] MEDS: THIAMINE HCL 100 MG TABLET (FP) PO SCH (22:02)
[2016-03-25] MEDS: diphenhydrAMINE HCL 50 MG CAPSULE PO PRN (22:02)
[2016-03-26] MEDS ORDERED: METHADONE HCL 40 MG DISPERSABLE TABLET ONE (03:21)
[2016-03-26] MEDS ORDERED: METHADONE HCL 10 MG TABLET ONE (03:22)
[2016-03-26] MEDS ORDERED: METHADONE HCL 10 MG TABLET PO ONE (06:00)
[2016-03-26] MEDS ORDERED: METHADONE 80 MG, METHADONE 10 MG PO ONE (06:00)
[2016-03-26] MEDS: SERTRALINE HCL 50 MG TABLET (FP) PO SCH (10:08)
[2016-03-26] MEDS: PRENATAL VITAMINS W/ FOLIC ACID TABLET (FP) PO SCH (10:08)
[2016-03-26] MEDS: amLODIPine BESYLATE 5 MG TABLET (FP) PO SCH (10:08)
[2016-03-26] MEDS: LISINOPRIL 10 MG TABLET (FP) PO SCH (10:08)
[2016-03-26] MEDS: PANTOPRAZOLE 40 MG TABLET (FP) PO SCH (10:08)
[2016-03-26] MEDS: THIAMINE HCL 100 MG TABLET (FP) PO SCH (21:29)
[2016-03-26] MEDS: diphenhydrAMINE HCL 50 MG CAPSULE PO PRN (21:30)
[2016-03-27] MEDS ORDERED: METHADONE HCL 40 MG DISPERSABLE TABLET ONE (03:15)
[2016-03-27] MEDS ORDERED: METHADONE HCL 10 MG TABLET ONE (03:16)
[2016-03-27] MEDS ORDERED: METHADONE 80 MG, METHADONE 20 MG PO ONE (06:00)
[2016-03-27] MEDS ORDERED: METHADONE HCL 10 MG TABLET PO ONE (06:00)
[2016-03-27] MEDS: LISINOPRIL 10 MG TABLET (FP) PO SCH (10:23)
[2016-03-27] MEDS: PRENATAL VITAMINS W/ FOLIC ACID TABLET (FP) PO SCH (10:23)
[2016-03-27] MEDS: SERTRALINE HCL 50 MG TABLET (FP) PO SCH (10:23)
[2016-03-27] MEDS: PANTOPRAZOLE 40 MG TABLET (FP) PO SCH (10:23)
[2016-03-27] MEDS: amLODIPine BESYLATE 5 MG TABLET (FP) PO SCH (10:24)
[2016-03-27] MEDS: THIAMINE HCL 100 MG TABLET (FP) PO SCH (21:34)
[2016-03-27] MEDS: diphenhydrAMINE HCL 50 MG CAPSULE PO PRN (21:35)
[2016-03-28] MEDS ORDERED: METHADONE HCL 40 MG DISPERSABLE TABLET ONE (03:14)
[2016-03-28] MEDS ORDERED: METHADONE HCL 10 MG TABLET ONE (03:15)
[2016-03-28] MEDS ORDERED: METHADONE 80 MG, METHADONE 20 MG PO SCH (06:00)
[2016-03-28] MEDS ORDERED: METHADONE HCL 40 MG DISPERSABLE TABLET PO SCH (06:00)
[2016-03-28] MEDS: SERTRALINE HCL 50 MG TABLET (FP) PO SCH (10:03)
[2016-03-28] MEDS: LISINOPRIL 10 MG TABLET (FP) PO SCH (10:03)
[2016-03-28] MEDS: PRENATAL VITAMINS W/ FOLIC ACID TABLET (FP) PO SCH (10:03)
[2016-03-28] MEDS: PANTOPRAZOLE 40 MG TABLET (FP) PO SCH (10:03)
[2016-03-28] MEDS: amLODIPine BESYLATE 5 MG TABLET (FP) PO SCH (10:04)
[2016-03-28] MEDS: diphenhydrAMINE HCL 50 MG CAPSULE PO PRN (21:51)
[2016-03-28] MEDS: THIAMINE HCL 100 MG TABLET (FP) PO SCH (21:51)
[2016-03-29] MEDS ORDERED: METHADONE HCL 40 MG DISPERSABLE TABLET ONE (05:06)
[2016-03-29] MEDS ORDERED: METHADONE HCL 10 MG TABLET ONE (05:06)
[2016-03-29] MEDS: METHADONE 80 MG, METHADONE 20 MG PO SCH (06:32)
[2016-03-29] MEDS: PANTOPRAZOLE 40 MG TABLET (FP) PO SCH (09:59)
[2016-03-29] MEDS: LISINOPRIL 10 MG TABLET (FP) PO SCH (09:59)
[2016-03-29] MEDS: amLODIPine BESYLATE 5 MG TABLET (FP) PO SCH (09:59)
[2016-03-29] MEDS: SERTRALINE HCL 50 MG TABLET (FP) PO SCH (09:59)
[2016-03-29] MEDS: PRENATAL VITAMINS W/ FOLIC ACID TABLET (FP) PO SCH (09:59)
[2016-03-29] MEDS: THIAMINE HCL 100 MG TABLET (FP) PO SCH (21:48)
[2016-03-29] MEDS: diphenhydrAMINE HCL 50 MG CAPSULE PO PRN (21:49)
[2016-03-30] MEDS ORDERED: METHADONE HCL 40 MG DISPERSABLE TABLET ONE (03:16)
[2016-03-30] MEDS ORDERED: METHADONE HCL 10 MG TABLET ONE (03:16)
[2016-03-30] MEDS: METHADONE 80 MG, METHADONE 20 MG PO SCH (06:13)
[2016-03-30] MEDS: LISINOPRIL 10 MG TABLET (FP) PO SCH (10:02)
[2016-03-30] MEDS: PRENATAL VITAMINS W/ FOLIC ACID TABLET (FP) PO SCH (10:02)
[2016-03-30] MEDS: SERTRALINE HCL 50 MG TABLET (FP) PO SCH (10:02)
[2016-03-30] MEDS: amLODIPine BESYLATE 5 MG TABLET (FP) PO SCH (10:02)
[2016-03-30] MEDS: PANTOPRAZOLE 40 MG TABLET (FP) PO SCH (10:02)
[2016-03-30] MEDS: diphenhydrAMINE HCL 50 MG CAPSULE PO PRN (21:55)
[2016-03-30] MEDS: THIAMINE HCL 100 MG TABLET (FP) PO SCH (21:55)
[2016-03-31] MEDS ORDERED: METHADONE HCL 40 MG DISPERSABLE TABLET ONE (05:00)
[2016-03-31] MEDS ORDERED: METHADONE HCL 10 MG TABLET ONE (05:01)
[2016-03-31] MEDS: METHADONE 80 MG, METHADONE 20 MG PO SCH (06:45)
[2016-03-31] MEDS: amLODIPine BESYLATE 5 MG TABLET (FP) PO SCH (10:09)
[2016-03-31] MEDS: SERTRALINE HCL 50 MG TABLET (FP) PO SCH (10:09)
[2016-03-31] MEDS: PANTOPRAZOLE 40 MG TABLET (FP) PO SCH (10:09)
[2016-03-31] MEDS: LISINOPRIL 10 MG TABLET (FP) PO SCH (10:09)
[2016-03-31] MEDS: PRENATAL VITAMINS W/ FOLIC ACID TABLET (FP) PO SCH (10:09)
[2016-03-31] MEDS: THIAMINE HCL 100 MG TABLET (FP) PO SCH (21:42)
[2016-03-31] MEDS: diphenhydrAMINE HCL 50 MG CAPSULE PO PRN (21:43)
[2016-04-01] MEDS ORDERED: METHADONE HCL 40 MG DISPERSABLE TABLET ONE (03:17)
[2016-04-01] MEDS ORDERED: METHADONE HCL 10 MG TABLET ONE (03:17)
[2016-04-01] MEDS: METHADONE 80 MG, METHADONE 20 MG PO SCH (06:46)
[2016-04-01] MEDS: amLODIPine BESYLATE 5 MG TABLET (FP) PO SCH (10:13)
[2016-04-01] MEDS: PANTOPRAZOLE 40 MG TABLET (FP) PO SCH (10:13)
[2016-04-01] MEDS: SERTRALINE HCL 50 MG TABLET (FP) PO SCH (10:13)
[2016-04-01] MEDS: PRENATAL VITAMINS W/ FOLIC ACID TABLET (FP) PO SCH (10:13)
[2016-04-01] MEDS: LISINOPRIL 10 MG TABLET (FP) PO SCH (10:13)
[2016-04-01] MEDS: diphenhydrAMINE HCL 50 MG CAPSULE PO PRN (21:06)
[2016-04-01] MEDS: THIAMINE HCL 100 MG TABLET (FP) PO SCH (21:06)
[2016-04-02] MEDS ORDERED: METHADONE HCL 40 MG DISPERSABLE TABLET ONE (03:10)
[2016-04-02] MEDS ORDERED: METHADONE HCL 10 MG TABLET ONE (03:11)
[2016-04-02] MEDS: IBUPROFEN 400 MG TABLET (FP) PO PRN (04:47)
[2016-04-02] MEDS: METHADONE 80 MG, METHADONE 20 MG PO SCH (05:38)
[2016-04-02] MEDS: LISINOPRIL 10 MG TABLET (FP) PO SCH (09:48)
[2016-04-02] MEDS: PRENATAL VITAMINS W/ FOLIC ACID TABLET (FP) PO SCH (09:48)
[2016-04-02] MEDS: SERTRALINE HCL 50 MG TABLET (FP) PO SCH (09:48)
[2016-04-02] MEDS: PANTOPRAZOLE 40 MG TABLET (FP) PO SCH (09:48)
[2016-04-02] MEDS: amLODIPine BESYLATE 5 MG TABLET (FP) PO SCH (09:48)
[2016-04-02] MEDS: diphenhydrAMINE HCL 50 MG CAPSULE PO PRN (21:59)
[2016-04-02] MEDS: THIAMINE HCL 100 MG TABLET (FP) PO SCH (21:59)
[2016-04-03] MEDS ORDERED: METHADONE HCL 10 MG TABLET ONE (03:07)
[2016-04-03] MEDS ORDERED: METHADONE HCL 40 MG DISPERSABLE TABLET ONE (03:07)
[2016-04-03] MEDS: METHADONE 80 MG, METHADONE 20 MG PO SCH (06:54)
[2016-04-03] MEDS: LISINOPRIL 10 MG TABLET (FP) PO SCH (10:01)
[2016-04-03] MEDS: PANTOPRAZOLE 40 MG TABLET (FP) PO SCH (10:02)
[2016-04-03] MEDS: PRENATAL VITAMINS W/ FOLIC ACID TABLET (FP) PO SCH (10:02)
[2016-04-03] MEDS: amLODIPine BESYLATE 5 MG TABLET (FP) PO SCH (10:02)
[2016-04-03] MEDS: SERTRALINE HCL 50 MG TABLET (FP) PO SCH (10:02)
[2016-04-03] MEDS: THIAMINE HCL 100 MG TABLET (FP) PO SCH (21:38)
[2016-04-03] MEDS: diphenhydrAMINE HCL 50 MG CAPSULE PO PRN (21:38)
[2016-04-04] MEDS ORDERED: METHADONE HCL 40 MG DISPERSABLE TABLET ONE (05:45)
[2016-04-04] MEDS ORDERED: METHADONE HCL 10 MG TABLET ONE (05:46)
[2016-04-04] MEDS: METHADONE 80 MG, METHADONE 20 MG PO SCH (06:44)
[2016-04-04] MEDS: PANTOPRAZOLE 40 MG TABLET (FP) PO SCH (09:53)
[2016-04-04] MEDS: SERTRALINE HCL 50 MG TABLET (FP) PO SCH (09:53)
[2016-04-04] MEDS: amLODIPine BESYLATE 5 MG TABLET (FP) PO SCH (09:54)
[2016-04-04] MEDS: LISINOPRIL 10 MG TABLET (FP) PO SCH (09:54)
[2016-04-04] MEDS: PRENATAL VITAMINS W/ FOLIC ACID TABLET (FP) PO SCH (09:54)
[2016-04-04] MEDS: NICOTINE 14 MG/24 HOURS TOPICAL PATCH TD SCH (09:54)
[2016-04-04] MEDS: diphenhydrAMINE HCL 50 MG CAPSULE PO PRN (21:51)
[2016-04-04] MEDS: THIAMINE HCL 100 MG TABLET (FP) PO SCH (21:51)
[2016-04-05] MEDS: LISINOPRIL 10 MG TABLET (FP) PO SCH (09:49)
[2016-04-05] MEDS: SERTRALINE HCL 50 MG TABLET (FP) PO SCH (09:49)
[2016-04-05] MEDS: PANTOPRAZOLE 40 MG TABLET (FP) PO SCH (09:49)
[2016-04-05] MEDS: amLODIPine BESYLATE 5 MG TABLET (FP) PO SCH (09:49)
[2016-04-05] MEDS: PRENATAL VITAMINS W/ FOLIC ACID TABLET (FP) PO SCH (09:49)
[2016-04-05] MEDS: NICOTINE 14 MG/24 HOURS TOPICAL PATCH TD SCH (09:50)
[2016-04-05] MEDS ORDERED: METHADONE HCL 40 MG DISPERSABLE TABLET ONE (09:53)
[2016-04-05] MEDS ORDERED: METHADONE HCL 10 MG TABLET ONE (09:53)
[2016-04-05] MEDS: METHADONE 80 MG, METHADONE 20 MG PO SCH (09:54)
[2016-04-05] MEDS: diphenhydrAMINE HCL 50 MG CAPSULE PO PRN (21:45)
[2016-04-05] MEDS: THIAMINE HCL 100 MG TABLET (FP) PO SCH (21:45)
[2016-04-06] MEDS ORDERED: METHADONE HCL 10 MG TABLET ONE (09:43)
[2016-04-06] MEDS ORDERED: METHADONE HCL 40 MG DISPERSABLE TABLET ONE (09:43)
[2016-04-06] MEDS: METHADONE 80 MG, METHADONE 20 MG PO SCH (09:44)
[2016-04-06] MEDS: amLODIPine BESYLATE 5 MG TABLET (FP) PO SCH (09:45)
[2016-04-06] MEDS: SERTRALINE HCL 50 MG TABLET (FP) PO SCH (09:45)
[2016-04-06] MEDS: PANTOPRAZOLE 40 MG TABLET (FP) PO SCH (09:45)
[2016-04-06] MEDS: LISINOPRIL 10 MG TABLET (FP) PO SCH (09:46)
[2016-04-06] MEDS: NICOTINE 14 MG/24 HOURS TOPICAL PATCH TD SCH (09:46)
[2016-04-06] MEDS: PRENATAL VITAMINS W/ FOLIC ACID TABLET (FP) PO SCH (09:47)
[2016-04-06] MEDS: diphenhydrAMINE HCL 50 MG CAPSULE PO PRN (21:33)
[2016-04-06] MEDS: THIAMINE HCL 100 MG TABLET (FP) PO SCH (21:33)
[2016-04-07] MEDS ORDERED: METHADONE HCL 40 MG DISPERSABLE TABLET ONE (09:52)
[2016-04-07] MEDS ORDERED: METHADONE HCL 10 MG TABLET ONE (09:52)
[2016-04-07] MEDS: PRENATAL VITAMINS W/ FOLIC ACID TABLET (FP) PO SCH (09:53)
[2016-04-07] MEDS: LISINOPRIL 10 MG TABLET (FP) PO SCH (09:53)
[2016-04-07] MEDS: PANTOPRAZOLE 40 MG TABLET (FP) PO SCH (09:53)
[2016-04-07] MEDS: amLODIPine BESYLATE 5 MG TABLET (FP) PO SCH (09:53)
[2016-04-07] MEDS: SERTRALINE HCL 50 MG TABLET (FP) PO SCH (09:53)
[2016-04-07] MEDS: METHADONE 80 MG, METHADONE 20 MG PO SCH (09:54)
[2016-04-07] MEDS: NICOTINE 14 MG/24 HOURS TOPICAL PATCH TD SCH (09:57)
[2016-04-07] MEDS: diphenhydrAMINE HCL 50 MG CAPSULE PO PRN (21:27)
[2016-04-07] MEDS: THIAMINE HCL 100 MG TABLET (FP) PO SCH (21:27)
[2016-04-08] MEDS: NICOTINE 14 MG/24 HOURS TOPICAL PATCH TD SCH (10:03)
[2016-04-08] MEDS: amLODIPine BESYLATE 5 MG TABLET (FP) PO SCH (10:03)
[2016-04-08] MEDS: LISINOPRIL 10 MG TABLET (FP) PO SCH (10:03)
[2016-04-08] MEDS: SERTRALINE HCL 50 MG TABLET (FP) PO SCH (10:03)
[2016-04-08] MEDS: PRENATAL VITAMINS W/ FOLIC ACID TABLET (FP) PO SCH (10:03)
[2016-04-08] MEDS: PANTOPRAZOLE 40 MG TABLET (FP) PO SCH (10:04)
[2016-04-08] MEDS ORDERED: METHADONE HCL 40 MG DISPERSABLE TABLET ONE (10:05)
[2016-04-08] MEDS: METHADONE 80 MG, METHADONE 20 MG PO SCH (10:06)
[2016-04-08] MEDS ORDERED: METHADONE HCL 10 MG TABLET ONE (10:06)
[2016-04-08] MEDS: diphenhydrAMINE HCL 50 MG CAPSULE PO PRN (21:48)
[2016-04-08] MEDS: THIAMINE HCL 100 MG TABLET (FP) PO SCH (21:48)
[2016-04-09] MEDS ORDERED: METHADONE HCL 40 MG DISPERSABLE TABLET ONE (09:17)
[2016-04-09] MEDS ORDERED: METHADONE HCL 10 MG TABLET ONE (09:18)
[2016-04-09] MEDS: NICOTINE 14 MG/24 HOURS TOPICAL PATCH TD SCH (09:45)
[2016-04-09] MEDS: METHADONE 80 MG, METHADONE 20 MG PO SCH (09:45)
[2016-04-09] MEDS: amLODIPine BESYLATE 5 MG TABLET (FP) PO SCH (09:46)
[2016-04-09] MEDS: LISINOPRIL 10 MG TABLET (FP) PO SCH (09:46)
[2016-04-09] MEDS: PANTOPRAZOLE 40 MG TABLET (FP) PO SCH (09:46)
[2016-04-09] MEDS: PRENATAL VITAMINS W/ FOLIC ACID TABLET (FP) PO SCH (09:46)
[2016-04-09] MEDS: SERTRALINE HCL 50 MG TABLET (FP) PO SCH (09:46)
[2016-04-09] MEDS: THIAMINE HCL 100 MG TABLET (FP) PO SCH (21:37)
[2016-04-09] MEDS: diphenhydrAMINE HCL 50 MG CAPSULE PO PRN (21:38)
[2016-04-10] MEDS ORDERED: METHADONE HCL 40 MG DISPERSABLE TABLET ONE (09:14)
[2016-04-10] MEDS ORDERED: METHADONE HCL 10 MG TABLET ONE (09:14)
[2016-04-10] MEDS: METHADONE 80 MG, METHADONE 20 MG PO SCH (09:51)
[2016-04-10] MEDS: LISINOPRIL 10 MG TABLET (FP) PO SCH (09:52)
[2016-04-10] MEDS: amLODIPine BESYLATE 5 MG TABLET (FP) PO SCH (09:52)
[2016-04-10] MEDS: PRENATAL VITAMINS W/ FOLIC ACID TABLET (FP) PO SCH (09:52)
[2016-04-10] MEDS: SERTRALINE HCL 50 MG TABLET (FP) PO SCH (09:52)
[2016-04-10] MEDS: PANTOPRAZOLE 40 MG TABLET (FP) PO SCH (09:52)
[2016-04-10] MEDS: NICOTINE 14 MG/24 HOURS TOPICAL PATCH TD SCH (09:53)
[2016-04-10] MEDS: THIAMINE HCL 100 MG TABLET (FP) PO SCH (21:36)
[2016-04-10] MEDS: diphenhydrAMINE HCL 50 MG CAPSULE PO PRN (21:37)
[2016-04-11] MEDS ORDERED: METHADONE HCL 40 MG DISPERSABLE TABLET ONE (10:15)
[2016-04-11] MEDS ORDERED: METHADONE HCL 10 MG TABLET ONE (10:15)
[2016-04-11] MEDS: PANTOPRAZOLE 40 MG TABLET (FP) PO SCH (10:20)
[2016-04-11] MEDS: PRENATAL VITAMINS W/ FOLIC ACID TABLET (FP) PO SCH (10:20)
[2016-04-11] MEDS: SERTRALINE HCL 50 MG TABLET (FP) PO SCH (10:20)
[2016-04-11] MEDS: NICOTINE 14 MG/24 HOURS TOPICAL PATCH TD SCH (10:20)
[2016-04-11] MEDS: amLODIPine BESYLATE 5 MG TABLET (FP) PO SCH (10:20)
[2016-04-11] MEDS: LISINOPRIL 10 MG TABLET (FP) PO SCH (10:22)
[2016-04-11] MEDS ORDERED: METHADONE HCL 10 MG TABLET PO ONE (10:32)
[2016-04-11] MEDS ORDERED: METHADONE 80 MG, METHADONE 20 MG PO ONE (10:45)
[2016-04-11] MEDS: diphenhydrAMINE HCL 50 MG CAPSULE PO PRN (21:55)
[2016-04-11] MEDS: THIAMINE HCL 100 MG TABLET (FP) PO SCH (21:55)
[2016-04-12] MEDS ORDERED: METHADONE HCL 40 MG DISPERSABLE TABLET ONE (03:12)
[2016-04-12] MEDS ORDERED: METHADONE HCL 10 MG TABLET ONE (03:12)
[2016-04-12] MEDS ORDERED: METHADONE 80 MG, METHADONE 20 MG PO SCH (06:00)
[2016-04-12] MEDS ORDERED: METHADONE HCL 10 MG TABLET PO SCH (06:00)
[2016-04-12] MEDS: PANTOPRAZOLE 40 MG TABLET (FP) PO SCH (10:05)
[2016-04-12] MEDS: LISINOPRIL 10 MG TABLET (FP) PO SCH (10:05)
[2016-04-12] MEDS: SERTRALINE HCL 50 MG TABLET (FP) PO SCH (10:05)
[2016-04-12] MEDS: amLODIPine BESYLATE 5 MG TABLET (FP) PO SCH (10:05)
[2016-04-12] MEDS: NICOTINE 14 MG/24 HOURS TOPICAL PATCH TD SCH (10:05)
[2016-04-12] MEDS: PRENATAL VITAMINS W/ FOLIC ACID TABLET (FP) PO SCH (10:05)
[2016-04-12] MEDS: METHADONE 80 MG, METHADONE 20 MG PO SCH (10:28)
[2016-04-12] MEDS: THIAMINE HCL 100 MG TABLET (FP) PO SCH (21:46)
[2016-04-12] MEDS: diphenhydrAMINE HCL 50 MG CAPSULE PO PRN (21:46)
[2016-04-13 06:56] VITALS: TEMP 98.3
[2016-04-13] MEDS ORDERED: METHADONE HCL 40 MG DISPERSABLE TABLET ONE (08:28)
[2016-04-13] MEDS ORDERED: METHADONE HCL 10 MG TABLET ONE (08:28)
[2016-04-13 09:01] VITALS: BP 125/77; PULSE 58
--- NOTE | 2016-04-13 09:38 | PN ---
Psychiatric Progress Note Vital Signs: Vital Signs Period Temp Pulse Resp BP Sys/Chaudhry Pulse Ox Last 24 Hr 98.3 F 52-58 16-18 125-134/72-89 Date of Session: 04/13/16 Chief Complaint:: discharge visit HPI: Patient has addressed alcohol, opioid,cocaine, nicotine dependence comorbid KUSH, Mood disorder. ROS: HTN, GERD, Hep C medically managed. Current Medications: Active Medications Generic Name Dose Route Start Last Admin Trade Name Freq PRN Reason Stop Dose Admin Acetaminophen 650 mg 03/18/16 18:43 Tylenol - PO Q4H PRN FEVER OR PAIN Al Hydroxide/Mg Hydroxide 30 ml 03/18/16 18:43 Mylanta Oral Suspension - PO Q6H PRN DYSPEPSIA Amlodipine Besylate 5 mg 03/19/16 10:00 04/12/16 10:05 Norvasc - PO 5 mg DAILY LISSY Administration Diphenhydramine HCl 50 mg 03/18/16 18:43 04/12/16 21:46 Benadryl - PO 50 mg HSMR1 PRN Administration FOR ITCHING Eucalyptus/Menthol/Phenol/Sorbitol 1 each 03/18/16 18:43 Cepastat Lozenge - MM Q4H PRN SORE THROAT Guaifenesin 10 ml 03/18/16 18:43 Robitussin Dm - PO Q6H PRN COUGH Hydroxyzine Pamoate 50 mg 03/18/16 18:43 03/22/16 02:52 Vistaril - PO 50 mg Q4H PRN Administration AGITATION Ibuprofen 400 mg 03/18/16 18:43 04/02/16 04:47 Motrin - PO 400 mg Q6H PRN Administration PAIN Lisinopril 10 mg 03/19/16 10:00 04/12/16 10:05 Prinivil PO 10 mg DAILY LISSY Administration Loperamide HCl 4 mg 03/18/16 18:43 Imodium - PO Q6H PRN DIARRHEA Magnesium Hydroxide 30 ml 03/18/16 18:43 Milk Of Magnesia - PO DAILY PRN CONSTIPATION Methadone HCl 80 mg/ Methadone 100 mg 04/12/16 10:11 04/12/16 10:28 HCl 20 mg PO 04/19/16 10:10 100 mg DAILY@1000 LISSY Administration Nicotine 14 mg 04/04/16 10:00 04/12/16 10:05 Nicoderm Patch - TD 14 mg DAILY LISSY Administration Nicotine Polacrilex 2 mg 03/18/16 18:47 Nicorette Gum - BUC Q2H PRN NICOTINE REPLACEMENT RX Pantoprazole Sodium 40 mg 03/19/16 10:00 04/12/16 10:05 Protonix - PO 40 mg DAILY LISSY Administration Multivit/Folic Acid/Iron 1 tab 03/19/16 10:00 04/12/16 10:05 Vitamins (Sjr) - PO 1 tab DAILY LISSY Administration Pseudoephedrine/Triprolidine 1 combo 03/18/16 18:43 Actifed - PO TID PRN NASAL CONGESTION Sertraline HCl 50 mg 03/19/16 10:00 04/12/16 10:05 Zoloft - PO 50 mg DAILY LISSY Administration Thiamine HCl 100 mg 03/18/16 22:00 04/12/16 21:46 Vitamin B1 - PO 100 mg HS LISSY Administration Current Side Effect: No Lab tests ordered: No Lab tests reviewed: Yes Provider note:: Patient has completed today his treatment and met his identified goals, will continue to address his issues at [facility] outpatient treatment program. Patient gained insight into importance of continuing maintin abstinence and utilization of supports to prevent relapses. Zoloft well tolerated, patient reports feeling more energetic and hopeful, scripts provided, patient is stable for discharge. Total face to face time:: 35 Mental Status Exam - Mental Status Exam Alert and Oriented to: Time, Place, Person Cognitive Function: Good Patient Appearance: Well Groomed Mood: Hopeful Affect: Appropriate, Mood Congruent Patient Behavior: Appropriate, Cooperative Speech Pattern: Clear, Appropriate Voice Loudness: Normal Thought Process: Intact, Goal Oriented Thought Disorder: Not Present Hallucinations: Denies Suicidal Ideation: Denies Homicidal Ideation: Denies Insight/Judgement: Good Sleep: Well Appetite: Good Muscle strength/Tone: Normal Gait/Station: Normal Psychiatric Treatment Plan - Problem List (1) Cocaine dependence Current Visit: No Qualifiers: Substance use status: uncomplicated Qualified Code(s): F14.20 - Cocaine dependence, uncomplicated (2) GERD (gastroesophageal reflux disease) Current Visit: No Qualifiers: Esophagitis presence: without esophagitis Qualified Code(s): K21.9 - Gastro-esophageal reflux disease without esophagitis (3) HTN (hypertension) Current Visit: No Qualifiers: Hypertension type: essential hypertension Qualified Code(s): I10 - Essential (primary) hypertension (4) Hepatitis C Current Visit: No Qualifiers: Viral hepatitis chronicity: chronic Hepatic coma status: without hepatic coma Qualified Code(s): B18.2 - Chronic viral hepatitis C (5) Nicotine dependence Current Visit: No Qualifiers: Nicotine product type: cigarettes Substance use status: uncomplicated Qualified Code(s): F17.210 - Nicotine dependence, cigarettes, uncomplicated (6) Opioid dependence Current Visit: Yes (7) Alcohol dependence Current Visit: Yes (8) KUSH (generalized anxiety disorder) Current Visit: Yes (9) Mood disorder Current Visit: Yes
[2016-04-13] MEDS: LISINOPRIL 10 MG TABLET (FP) PO SCH (10:14)
[2016-04-13] MEDS: amLODIPine BESYLATE 5 MG TABLET (FP) PO SCH (10:14)
[2016-04-13] MEDS: NICOTINE 14 MG/24 HOURS TOPICAL PATCH TD SCH (10:14)
[2016-04-13] MEDS: PANTOPRAZOLE 40 MG TABLET (FP) PO SCH (10:14)
[2016-04-13] MEDS: SERTRALINE HCL 50 MG TABLET (FP) PO SCH (10:14)
[2016-04-13] MEDS: PRENATAL VITAMINS W/ FOLIC ACID TABLET (FP) PO SCH (10:14)
[2016-04-13] MEDS: METHADONE 80 MG, METHADONE 20 MG PO SCH (10:15)
== END 2016-04-13 10:45 | disposition home or self-care (01) | DRG 772 ==
LOC: YASAS 17:08 → Y5N 17:12
PROVIDERS: ADMIT Psychiatry & Neurology Psychiatry; ATTEND Psychiatry & Neurology Psychiatry
PROC: HZ42ZZZ Group Counseling for Substance Abuse Treatment, Cognitive-Behavioral (ICD-10-PCS; principal; 2016-04-13)
DX: F11.20 Opioid dependence, uncomplicated (principal); F10.20 Alcohol dependence, uncomplicated; F14.20 Cocaine dependence, uncomplicated; F17.210 Nicotine dependence, cigarettes, uncomplicated; F41.1 Generalized anxiety disorder; F39 Unspecified mood [affective] disorder; B18.2 Chronic viral hepatitis C; I10 Essential (primary) hypertension; K21.9 Gastro-esophageal reflux disease without esophagitis
CPT/HCPCS: 36415; 80053; 82140; 85027

== ENCOUNTER 2017-05-23 12:21 | Inpatient (IN) | payer OTHER ==
[2017-05-23 14:52] VITALS: BMI 25.4
--- NOTE | 2017-05-23 18:32 | HP ---
CIWA Score - CIWA Score Nausea/Vomitin-Mild Nausea/No Vomiting Muscle Tremors: 4-Moderate,w/Arms Extend Anxiety: 4-Mod. Anxious/Guarded Agitation: 4-Moderately Restless Paroxysmal Sweats: 3 Orientation: 0-Oriented Tacttile Disturbances: 0-None Auditory Disturbances: 0-None Visual Disturbances: 0-None Headache: 0-None Present CIWA-Ar Total Score: 16 Admission ROS BHS - HPI Chief Complaint: I am here to go to detox. Allergies/Adverse Reactions: Allergies Allergy/AdvReac Type Severity Reaction Status Date / Time No Known Allergies Allergy Verified 05/23/17 16:56 History of Present Illness: pt is a 56yr old male with a history of alcohol dependence seeking detox for treatment. Exam Limitations: No Limitations - Ebola screening Have you traveled outside of the country in the last 21 days: No (N) Have you had contact with anyone from an Ebola affected area: No Have you been sick,other than usual withdrawal symptoms: No Do you have a fever: No - Review of Systems Constitutional: Chills, Loss of Appetite, Changes in sleep, Unintentional Wgt. Loss EENT: reports: Tearing, Nose Congestion Respiratory: reports: Cough Cardiac: reports: No Symptoms Reported GI: reports: Poor Appetite, Poor Fluid Intake : reports: No Symptoms Reported Musculoskeletal: reports: Back Pain Integumentary: reports: Flushing, Sweating Neuro: reports: Headache, Tremors Endocrine: reports: Excessive Sweating, Flushing, Intolerance to Cold, Intolerance to Heat Hematology: reports: No Symptoms Reported Psychiatric: reports: Judgement Intact, Mood/Affect Appropiate, Orientated x3, Agitated, Anxious Other Systems: Reviewed and Negative Patient History - Patient Medical History Hx Anemia: No Hx Asthma: No Hx Chronic Obstructive Pulmonary Disease (COPD): No Hx Cancer: No Hx Cardiac Disorders: No Hx Congestive Heart Failure: No Hx Hypertension: Yes Hx Hypercholesterolemia: No Hx Pacemaker: No HX Cerebrovascular Accident: No Hx Seizures: No Hx Dementia: No Hx Diabetes: No Hx Gastrointestinal Disorders: Yes (acid reflux) Hx Liver Disease: No Hx Genitourinary Disorders: No Hx Sexually Transmitted Disorders: No Hx Renal Disease (ESRD): No Hx Thyroid Disease: No Hx Human Immunodeficiency Virus (HIV): No (03/28 last negative) Hx Hepatitis C: Yes (2004) Hx Depression: Yes Hx Suicide Attempt: No Hx Bipolar Disorder: Yes (no medication) Hx Schizophrenia: No - Patient Surgical History Past Surgical History: Yes Hx Neurologic Surgery: No Hx Cataract Extraction: No Hx Cardiac Surgery: No Hx Lung Surgery: No Hx Breast Surgery: No Hx Breast Biopsy: No Hx Abdominal Surgery: Yes (splenectomy at age 17) Hx Appendectomy: No Hx Cholecystectomy: No Hx Genitourinary Surgery: No Hx Section: No Hx Orthopedic Surgery: No Anesthesia Reaction: No - PPD History Previous Implant?: Yes Documented Results: Positive w/o proof Implanted On Prior [facility] Admission?: No PPD to be Administered?: No - Reproductive History Patient is a Female of Child Bearing Age (11 -55 yrs old): No - Smoking Cessation Smoking history: Current every day smoker Have you smoked in the past 12 months: Yes Aproximately how many cigarettes per day: 10 Hx Chewing Tobacco Use: No Initiated information on smoking cessation: Yes 'Breaking Loose' booklet given: 05/23/17 - Substance & Tx. History Hx Alcohol Use: Yes Hx Substance Use: Yes Substance Use Type: Alcohol Hx Substance Use Treatment: Yes (last detox [facility] 9 months ago) - Substances Abused Crack Route: Smoking Frequency: 1-2 times per week Amount used: $20 Age of first use: 36 Date of Last Use: 05/21/17 Alcohol-elvira/beer Route: Oral Frequency: Daily Amount used: 2 pts./2-6 pks. Age of first use: 12 Date of Last Use: 05/23/17 Family Disease History - Family Disease History Family Disease History: Other: Father (alcohol,), Mother (alcohol, ) Admission Physical Exam S - Vital Signs Vital Signs: Vital Signs - 24 hr 05/23/17 14:49 Temperature 98 F Pulse Rate 50 L Respiratory 20 Rate Blood Pressure 146/95 - Physical General Appearance: Yes: Moderate Distress, Tremorous, Irritable, Sweating, Anxious HEENTM: Yes: Hearing grossly Normal, Normal Voice, Nasal Congestion, Rhinorrhea Respiratory: Yes: Rhonchi Neck: Yes: No masses,lesions,Nodules Breast: Yes: Within Normal Limits, No masses Cardiology: Yes: Regular Rhythm, Regular Rate, S1, S2 Abdominal: Yes: Normal Bowel Sounds, Non Tender, Soft Genitourinary: Yes: Within Normal Limits Back: Yes: Normal Inspection Musculoskeletal: Yes: full range of Motion Extremities: Yes: Normal Capillary Refill, Normal Inspection, Non-Tender, Tremors Neurological: Yes: Fully Oriented, Alert, Normal Response Integumentary: Yes: Normal Color, Diaphoresis Lymphatic: Yes: Within Normal Limits - Diagnostic (1) Alcohol dependence with uncomplicated withdrawal Current Visit: Yes Status: Chronic (2) Cocaine dependence Current Visit: Yes Status: Chronic Qualifiers: Substance use status: uncomplicated (3) GERD (gastroesophageal reflux disease) Current Visit: No Status: Chronic Qualifiers: Esophagitis presence: with esophagitis Qualified Code(s): K21.0 - Gastro- esophageal reflux disease with esophagitis (4) HTN (hypertension) Current Visit: Yes Status: Chronic Qualifiers: Hypertension type: essential hypertension (5) Hepatitis C Current Visit: Yes Status: Chronic Qualifiers: Viral hepatitis chronicity: chronic (6) Methadone maintenance therapy patient Current Visit: Yes Status: Chronic Comment: dose verified with 100mg (7) Nicotine dependence Current Visit: Yes Status: Chronic Qualifiers: Nicotine product type: cigarettes Substance use status: uncomplicated Qualified Code(s): F17.210 - Nicotine dependence, cigarettes, uncomplicated Cleared for Admission S - Detox or Rehab [facility] Level of Care: Medically Managed Detox Regimen/Protocol: Librium [facility] Breath Alcohol Content Breath Alcohol Content: 0.008 Urine Drug Screen - Results Drug Screen Negative: No Urine Drug Screen Results: FAIZA-Cocaine, MTD-Methadone
[2017-05-23] MEDS ORDERED: MAGNESIUM HYDROX 2400MG/30ML ORAL SUSPENSION 30 ML CUP PO PRN (18:35)
[2017-05-23] MEDS ORDERED: MENTHOL/PHENOL 1 EACH UD MM PRN (18:35)
[2017-05-23] MEDS ORDERED: ACETAMINOPHEN 325 MG TABLET (FP) PO PRN (18:35)
[2017-05-23] MEDS ORDERED: chlordiazePOXIDE HCL 25 MG CAPSULE PO ONE (18:35)
[2017-05-23] MEDS ORDERED: hydrOXYzine PAMOATE 50 MG CAPSULE (FP) PO PRN (18:35)
[2017-05-23] MEDS ORDERED: guaiFENesin/D-METHORPHAN HB 10 ML UNIT-DOSE CUPS PO PRN (18:35)
[2017-05-23] MEDS ORDERED: MAG HYDROX/AL HYDROX/SIMETH 30 ML UNIT-DOSE CUP PO PRN (18:35)
[2017-05-23] MEDS ORDERED: MAGNESIUM CITRATE 300 ML BOTTLE PO PRN (18:35)
[2017-05-23] MEDS ORDERED: IBUPROFEN 400 MG TABLET (FP) PO PRN (18:35)
[2017-05-23] MEDS ORDERED: P-EPHED 60MG/TRIPROLIDI 2.5MG TABLET PO PRN (18:35)
[2017-05-23] MEDS ORDERED: LOPERAMIDE HCL 2 MG CAPSULE PO PRN (18:35)
[2017-05-23] MEDS ORDERED: NICOTINE POLACRILEX 4 MG GUM BC PRN (18:35)
[2017-05-23] MEDS ORDERED: chlordiazePOXIDE HCL 25 MG CAPSULE PO PRN (18:35)
[2017-05-23] MEDS ORDERED: ALBUTEROL SO4 0.083% IH SOL 2.5 MG/3 ML VIAL.NEB. NEB PRN (18:38)
[2017-05-23] MEDS ORDERED: ALBUTEROL SO4 0.083% IH SOL 2.5 MG/3 ML VIAL.NEB. NEB ONE (19:00)
[2017-05-23] MEDS ORDERED: MELATONIN 5 MG TABLETS PO PRN (22:00)
[2017-05-23] MEDS: chlordiazePOXIDE HCL 25 MG CAPSULE PO SCH (22:19)
[2017-05-23] MEDS: THIAMINE HCL 100 MG TABLET (FP) PO SCH (22:19)
[2017-05-24 02:08] LABS: URINE APPEARANCE CLEAR; URINE BILIRUBIN NEGATIVE (<2.0 mg/dL); URINE BLOOD NEGATIVE (NEGATIVE); URINE COLOR LTYELLOW; URINE GLUCOSE (UA) NEGATIVE (NEGATIVE); URINE KETONE NEGATIVE (NEGATIVE); URINE LEUK ESTERASE NEGATIVE (NEGATIVE); URINE NITRITE NEGATIVE (NEGATIVE); URINE PROTEIN NEGATIVE (NEGATIVE)
[2017-05-24] MEDS: chlordiazePOXIDE HCL 25 MG CAPSULE PO SCH ×4 (05:44→22:16)
--- NOTE | 2017-05-24 09:36 | EKG ---
Test Reason : Blood Pressure : / mmHG Vent. Rate : 054 BPM Atrial Rate : 054 BPM P-R Int : 196 ms QRS Dur : 096 ms QT Int : 462 ms P-R-T Axes : 068 048 173 degrees QTc Int : 438 ms SINUS BRADYCARDIA WITH SINUS ARRHYTHMIA POSSIBLE LEFT ATRIAL ENLARGEMENT INCOMPLETE RIGHT BUNDLE BRANCH BLOCK LEFT VENTRICULAR HYPERTROPHY WITH REPOLARIZATION ABNORMALITY NONSPECIFIC T WAVE ABNORMALITY ABNORMAL ECG Confirmed by RON MERRITT MD ([id number]) on 05/24/2017 9:36:05 AM Referred By: Confirmed By:RON MERRITT MD
[2017-05-24 09:55] LABS: ALBUMIN 2.6 g/dl (3.4-5.0); ANION GAP 5 (8-16); BILIRUBIN,TOTAL 0.2 mg/dL (0.2-1.0); BLOOD UREA NITROGEN 14 mg/dL (7-18); CALCIUM 8.4 mg/dL (8.5-10.1); CHLORIDE 107 mmol/L (98-107); CO2 30 mmol/L (21-32); CREATININE 0.8 mg/dL (0.7-1.3); GLUCOSE,RANDOM 104 mg/dL (74-106); POTASSIUM 4.3 mmol/L (3.5-5.1); SGOT/AST 33 U/L (15-37); SGPT/ALT 28 U/L (12-78); SODIUM 142 mmol/L (136-145); TOT PROT 7.2 g/dl (6.4-8.2)
[2017-05-24 09:56] LABS: ALK PHOS 121 U/L (45-117)
[2017-05-24 10:06] LABS: HEMATOCRIT 39.8 % (35.4-49); HEMOGLOBIN 13.4 GM/dL (11.7-16.9); MCH 29.3 pg (25.7-33.7); MCHC 33.6 g/dl (32.0-35.9); MEAN CELL VOLUME 87.3 fl (80-96); MEAN PLT VOLUME 7.6 fl (7.5-11.1); PLATELET COUNT 361 K/MM3 (134-434); RBC 4.56 M/mm3 (4.00-5.60); RDW 13.4 % (11.9-15.9); WHITE BLOOD COUNT 4.9 K/mm3 (4.0-10.0)
[2017-05-24] MEDS ORDERED: METHADONE HCL 10 MG TABLET PO ONE (10:39)
[2017-05-24] MEDS: amLODIPine BESYLATE 5 MG TABLET (FP) PO SCH (10:43)
[2017-05-24] MEDS: PANTOPRAZOLE 20 MG TABLET (FP) PO SCH (10:43)
[2017-05-24] MEDS: PRENATAL VITAMINS W/ FOLIC ACID TABLET (FP) PO SCH (10:43)
[2017-05-24] MEDS: LISINOPRIL 10 MG TABLET (FP) PO SCH (10:43)
[2017-05-24] MEDS: NICOTINE 21 MG/24 HOURS TOPICAL PATCH TD SCH (10:43)
[2017-05-24] MEDS ORDERED: METHADONE 80 MG, METHADONE 10 MG PO ONE (10:50)
[2017-05-24] MEDS ORDERED: METHADONE HCL 10 MG TABLET ONE (12:23)
[2017-05-24] MEDS ORDERED: METHADONE HCL 40 MG DISPERSABLE TABLET ONE (12:24)
--- NOTE | 2017-05-24 13:04 | PN ---
[facility] CIWA - CIWA Score Nausea/Vomitin-No Nausea/No Vomiting Muscle Tremors: 4-Moderate,w/Arms Extend Anxiety: 4-Mod. Anxious/Guarded Agitation: 4-Moderately Restless Paroxysmal Sweats: 1-Minimal Palms Moist Orientation: 0-Oriented Tacttile Disturbances: 0-None Auditory Disturbances: 0-None Visual Disturbances: 0-None Headache: 0-None Present CIWA-Ar Total Score: 13 BHS Progress Note (SOAP) Subjective: ANXIETY,SWEATS,FATIGUE. Objective: 05/24/17 13:03 Vital Signs 05/24/17 05/24/17 06:27 09:08 Temperature 97.2 F L 96 F L Pulse Rate 43 L 59 L Respiratory 18 20 Rate Blood Pressure 140/80 174/95 Laboratory Last Values WBC 4.9 K/mm3 (4.0-10.0) 05/24/17 08:00 RBC 4.56 M/mm3 (4.00-5.60) 05/24/17 08:00 Hgb 13.4 GM/dL (11.7-16.9) 05/24/17 08:00 Hct 39.8 % (35.4-49) 05/24/17 08:00 MCV 87.3 fl (80-96) 05/24/17 08:00 MCH 29.3 pg (25.7-33.7) 05/24/17 08:00 MCHC 33.6 g/dl (32.0-35.9) 05/24/17 08:00 RDW 13.4 % (11.9-15.9) 05/24/17 08:00 Plt Count 361 K/MM3 (134-434) 05/24/17 08:00 MPV 7.6 fl (7.5-11.1) 05/24/17 08:00 Sodium 142 mmol/L (136-145) 05/24/17 08:00 Potassium 4.3 mmol/L (3.5-5.1) 05/24/17 08:00 Chloride 107 mmol/L (98-107) 05/24/17 08:00 Carbon Dioxide 30 mmol/L (21-32) 05/24/17 08:00 Anion Gap 5 (8-16) L 05/24/17 08:00 BUN 14 mg/dL (7-18) 05/24/17 08:00 Creatinine 0.8 mg/dL (0.7-1.3) 05/24/17 08:00 Creat Clearance w eGFR > 60 (>60) 05/24/17 08:00 Random Glucose 104 mg/dL (74-106) 05/24/17 08:00 Calcium 8.4 mg/dL (8.5-10.1) L 05/24/17 08:00 Total Bilirubin 0.2 mg/dL (0.2-1.0) D 05/24/17 08:00 AST 33 U/L (15-37) D 05/24/17 08:00 ALT 28 U/L (12-78) D 05/24/17 08:00 Alkaline Phosphatase 121 U/L (45-117) H 05/24/17 08:00 Total Protein 7.2 g/dl (6.4-8.2) 05/24/17 08:00 Albumin 2.6 g/dl (3.4-5.0) L 05/24/17 08:00 Urine Color Ltyellow 05/24/17 00:05 Urine Appearance Clear 05/24/17 00:05 Urine pH 5.0 (5.0-8.0) 05/24/17 00:05 Ur Specific [place] 1.013 (1.001-1.035) 05/24/17 00:05 Urine Protein Negative (NEGATIVE) 05/24/17 00:05 Urine Glucose (UA) Negative (NEGATIVE) 05/24/17 00:05 Urine Ketones Negative (NEGATIVE) 05/24/17 00:05 Urine Blood Negative (NEGATIVE) 05/24/17 00:05 Urine Nitrite Negative (NEGATIVE) 05/24/17 00:05 Urine Bilirubin Negative (<2.0 mg/dL) 05/24/17 00:05 Urine Urobilinogen 2.0 mg/dL (0.2-1.0) 05/24/17 00:05 Ur Leukocyte Esterase Negative (NEGATIVE) 05/24/17 00:05 Assessment: 05/24/17 13:04 WITHDRAWAL SX Plan: CONTINUE DETOX
--- NOTE | 2017-05-24 16:53 | CONSULT ---
[facility] Psychiatric Consult - Data Date of interview: 05/24/17 Admission source: [facility] Identifying data: Readmission to [facility] for this 54 y/o AA male seeking rehabilitation treatment on for heroin,alcohol,cocaine and nicotine dependence.Patient is single,a father of one,domiciled,unemployed and supported on Public Assistance.. Substance Abuse History: Confirmed by patient in this session.Details in current [facility] report : Smoking history: Current every day smoker. Have you smoked in the past 12 months: Yes. Aproximately how many cigarettes per day: 10. Hx Chewing Tobacco Use: No. Initiated information on smoking cessation: Yes. 'Breaking Loose' booklet given: 05/23/17. - Substance & Tx. History. Hx Alcohol Use: Yes. Hx Substance Use: Yes. Substance Use Type: Alcohol. Hx Substance Use Treatment: Yes (last detox [facility] 9 months ago). - Substances Abused. Crack. Route: Smoking. Frequency: 1-2 times per week. Amount used: $20. Age of first use: 36. Date of Last Use: 05/21/17. Alcohol-elvira/beer. Route: Oral. Frequency: Daily. Amount used: 2 pts./2-6 pks. Age of first use: 12. Date of Last Use: 05/23/17 Medical History: Significant for hepatitis C and GERD. Psychiatric History: Mr Cosby denies history of psychiatric hospitalizations.Diagosed with Schizoaffective Disorder.Treated in intermediate (22 years of incarceration) with zoloft,seroquel and various other drugs.Still followed [facility] (daily dose of methadone = 90 mg).Patient denies history of suicide attempts. Physical/Sexual Abuse/Trauma History: Patient declines to discuss this domain. Additional Comment: Urine Drug Screen Results: FAIZA-Cocaine, MTD-Methadone.Noted. Mental Status Exam - Mental Status Exam Alert and Oriented to: Time, Place, Person Cognitive Function: Good Patient Appearance: Well Groomed Mood: Nervous, Withdrawn, Irritable Affect: Mood Congruent, Constricted Patient Behavior: Fatigued, Cooperative (superficially) Speech Pattern: Clear, Appropriate Voice Loudness: Normal Thought Process: Intact, Goal Oriented Thought Disorder: Not Present Hallucinations: Denies Suicidal Ideation: Denies Homicidal Ideation: Denies Insight/Judgement: Poor Sleep: Poorly, Difficulty falling asleep Appetite: Good Muscle strength/Tone: Normal Gait/Station: Normal Psychiatric Findings - Problem List ([place] 1, 2,3) (1) Opioid dependence on agonist therapy Current Visit: Yes Status: Acute (2) Alcohol dependence with uncomplicated withdrawal Current Visit: Yes Status: Acute (3) Cocaine dependence Current Visit: Yes Status: Acute Qualifiers: Substance use status: uncomplicated Qualified Code(s): F14.20 - Cocaine dependence, uncomplicated (4) Nicotine dependence Current Visit: Yes Status: Acute Qualifiers: Nicotine product type: cigarettes Substance use status: in withdrawal Qualified Code(s): F17.213 - Nicotine dependence, cigarettes, with withdrawal (5) Schizoaffective disorder Current Visit: Yes Status: Acute (6) Insomnia Current Visit: Yes Status: Acute - Initial Treatment Plan Initial Treatment Plan: Psychoeducation.Detoxification in progress.Sleep hygiene.Medications : seroquel is held (in view of daytime sleepiness/sedation) ; zoloft 50 mg po daily.Side effects/benefits of both drugs are discussed with the patient.Mr Cosby agrees with this plan of care.Observation.
[2017-05-24] MEDS: THIAMINE HCL 100 MG TABLET (FP) PO SCH (22:16)
[2017-05-25] MEDS ORDERED: METHADONE HCL 10 MG TABLET ONE (04:42)
[2017-05-25] MEDS ORDERED: METHADONE HCL 40 MG DISPERSABLE TABLET ONE (04:42)
[2017-05-25] MEDS: chlordiazePOXIDE HCL 25 MG CAPSULE PO SCH ×3 (05:39→17:55)
[2017-05-25] MEDS: METHADONE 80 MG, METHADONE 10 MG PO SCH (05:39)
[2017-05-25] MEDS ORDERED: METHADONE HCL 10 MG TABLET PO SCH (06:00)
[2017-05-25] MEDS: LISINOPRIL 10 MG TABLET (FP) PO SCH (10:34)
[2017-05-25] MEDS: SERTRALINE HCL 50 MG TABLET (FP) PO SCH (10:34)
[2017-05-25] MEDS: PANTOPRAZOLE 20 MG TABLET (FP) PO SCH (10:34)
[2017-05-25] MEDS: PRENATAL VITAMINS W/ FOLIC ACID TABLET (FP) PO SCH (10:35)
[2017-05-25] MEDS: amLODIPine BESYLATE 5 MG TABLET (FP) PO SCH (10:35)
[2017-05-25] MEDS: NICOTINE 21 MG/24 HOURS TOPICAL PATCH TD SCH (10:35)
--- NOTE | 2017-05-25 17:54 | PN ---
S CIWA - CIWA Score Nausea/Vomitin Muscle Tremors: 3 Anxiety: 3 Agitation: 2 Paroxysmal Sweats: 3 Orientation: 0-Oriented Tacttile Disturbances: 1-Very Mild Itch/Numbness Auditory Disturbances: 0-None Visual Disturbances: 0-None Headache: 0-None Present CIWA-Ar Total Score: 17 BHS Progress Note (SOAP) Subjective: Interrupted Sleep, Vomiting, Body Aches, Tremors, Anxious, Sweating. Objective: PATIENT A & O X 3, OBSERVED AMBULATING ON UNIT. NO ACUTE DISTRESS. 05/25/17 17:53 Vital Signs Temperature 97.2 F L 05/25/17 15:32 Pulse Rate 78 05/25/17 15:32 Respiratory Rate 18 05/25/17 15:32 Blood Pressure 118/74 05/25/17 15:32 O2 Sat by Pulse Oximetry (%) Laboratory Tests 05/24/17 05/24/17 05/24/17 00:05 08:00 08:00 WBC 4.9 RBC 4.56 Hgb 13.4 Hct 39.8 MCV 87.3 MCH 29.3 MCHC 33.6 RDW 13.4 Plt Count 361 MPV 7.6 Sodium 142 Potassium 4.3 Chloride 107 Carbon Dioxide 30 Anion Gap 5 L BUN 14 Creatinine 0.8 Creat Clearance w eGFR > 60 Random Glucose 104 Calcium 8.4 L Total Bilirubin 0.2 D AST 33 D ALT 28 D Alkaline Phosphatase 121 H Total Protein 7.2 Albumin 2.6 L Urine Color Ltyellow Urine Appearance Clear Urine pH 5.0 Ur Specific [employer] 1.013 Urine Protein Negative Urine Glucose (UA) Negative Urine Ketones Negative Urine Blood Negative Urine Nitrite Negative Urine Bilirubin Negative Urine Urobilinogen 2.0 Ur Leukocyte Esterase Negative RPR Titer 05/24/17 08:00 WBC RBC Hgb Hct MCV MCH MCHC RDW Plt Count MPV Sodium Potassium Chloride Carbon Dioxide Anion Gap BUN Creatinine Creat Clearance w eGFR Random Glucose Calcium Total Bilirubin AST ALT Alkaline Phosphatase Total Protein Albumin Urine Color Urine Appearance Urine pH Ur Specific [employer] Urine Protein Urine Glucose (UA) Urine Ketones Urine Blood Urine Nitrite Urine Bilirubin Urine Urobilinogen Ur Leukocyte Esterase RPR Titer Nonreactive LABS NOTED. Assessment: 05/25/17 17:53 WITHDRAWAL SYMPTOMS. Plan: CONTINUE DETOX.
[2017-05-25] MEDS: chlordiazePOXIDE 5 MG CAPSULE PO SCH (22:46)
[2017-05-25] MEDS: THIAMINE HCL 100 MG TABLET (FP) PO SCH (22:46)
[2017-05-26] MEDS ORDERED: METHADONE HCL 10 MG TABLET ONE (04:16)
[2017-05-26] MEDS ORDERED: METHADONE HCL 40 MG DISPERSABLE TABLET ONE (04:16)
[2017-05-26] MEDS: METHADONE 80 MG, METHADONE 10 MG PO SCH (05:46)
[2017-05-26] MEDS: chlordiazePOXIDE 5 MG CAPSULE PO SCH ×3 (05:46→18:03)
[2017-05-26] MEDS: PRENATAL VITAMINS W/ FOLIC ACID TABLET (FP) PO SCH (10:43)
[2017-05-26] MEDS: LISINOPRIL 10 MG TABLET (FP) PO SCH (10:43)
[2017-05-26] MEDS: SERTRALINE HCL 50 MG TABLET (FP) PO SCH (10:43)
[2017-05-26] MEDS: NICOTINE 21 MG/24 HOURS TOPICAL PATCH TD SCH (10:44)
[2017-05-26] MEDS: amLODIPine BESYLATE 5 MG TABLET (FP) PO SCH (10:44)
[2017-05-26] MEDS: PANTOPRAZOLE 20 MG TABLET (FP) PO SCH (10:44)
--- NOTE | 2017-05-26 12:31 | PN ---
BHS Progress Note (SOAP) Subjective: sweats interrupted sleep Objective: 05/26/17 12:30 Vital Signs Temperature 98.2 F 05/26/17 10:47 Pulse Rate 80 05/26/17 10:47 Respiratory Rate 20 05/26/17 10:47 Blood Pressure 128/74 05/26/17 10:47 O2 Sat by Pulse Oximetry (%) [id number] ambulating no acute distress Assessment: 05/26/17 12:31 mild withdrawal sx Plan: continue detox increase fluids d/c in am
[2017-05-26] MEDS: THIAMINE HCL 100 MG TABLET (FP) PO SCH (22:25)
[2017-05-26] MEDS: chlordiazePOXIDE HCL 10 MG CAPSULE PO SCH (22:25)
[2017-05-27] MEDS ORDERED: METHADONE HCL 10 MG TABLET ONE (03:15)
[2017-05-27] MEDS ORDERED: METHADONE HCL 40 MG DISPERSABLE TABLET ONE (03:15)
[2017-05-27] MEDS: chlordiazePOXIDE HCL 10 MG CAPSULE PO SCH ×2 (05:18→10:25)
[2017-05-27] MEDS: METHADONE 80 MG, METHADONE 10 MG PO SCH (05:18)
[2017-05-27] MEDS: PRENATAL VITAMINS W/ FOLIC ACID TABLET (FP) PO SCH (10:23)
[2017-05-27] MEDS: PANTOPRAZOLE 20 MG TABLET (FP) PO SCH (10:23)
[2017-05-27] MEDS: LISINOPRIL 10 MG TABLET (FP) PO SCH (10:23)
[2017-05-27] MEDS: SERTRALINE HCL 50 MG TABLET (FP) PO SCH (10:23)
[2017-05-27] MEDS: NICOTINE 21 MG/24 HOURS TOPICAL PATCH TD SCH (10:23)
[2017-05-27] MEDS: amLODIPine BESYLATE 5 MG TABLET (FP) PO SCH (10:23)
--- NOTE | 2017-05-27 12:15 | DS ---
[facility] Detox Discharge Summary Admission Date: 05/23/17 Discharge Date: 05/27/17 - History Present History: Alcohol Dependence, Cocaine Dependence, MMTP Additional Comments: Detox completed. Alert and oriented x 3. Cleared to go to [facility] rehab Pertinent Past History: See below. - Physical Exam Results Vital Signs: Vital Signs Temperature 97.5 F L 05/27/17 09:21 Pulse Rate 51 L 05/27/17 09:21 Respiratory Rate 18 05/27/17 09:21 Blood Pressure 117/71 05/27/17 09:21 O2 Sat by Pulse Oximetry (%) Pertinent Admission Physical Exam Findings: Withdrawal symptoms. Laboratory Tests 05/24/17 05/24/17 05/24/17 00:05 08:00 08:00 WBC 4.9 RBC 4.56 Hgb 13.4 Hct 39.8 MCV 87.3 MCH 29.3 MCHC 33.6 RDW 13.4 Plt Count 361 MPV 7.6 Sodium 142 Potassium 4.3 Chloride 107 Carbon Dioxide 30 Anion Gap 5 L BUN 14 Creatinine 0.8 Creat Clearance w eGFR > 60 Random Glucose 104 Calcium 8.4 L Total Bilirubin 0.2 D AST 33 D ALT 28 D Alkaline Phosphatase 121 H Total Protein 7.2 Albumin 2.6 L Urine Color Ltyellow Urine Appearance Clear Urine pH 5.0 Ur Specific [place] 1.013 Urine Protein Negative Urine Glucose (UA) Negative Urine Ketones Negative Urine Blood Negative Urine Nitrite Negative Urine Bilirubin Negative Urine Urobilinogen 2.0 Ur Leukocyte Esterase Negative RPR Titer 05/24/17 08:00 WBC RBC Hgb Hct MCV MCH MCHC RDW Plt Count MPV Sodium Potassium Chloride Carbon Dioxide Anion Gap BUN Creatinine Creat Clearance w eGFR Random Glucose Calcium Total Bilirubin AST ALT Alkaline Phosphatase Total Protein Albumin Urine Color Urine Appearance Urine pH Ur Specific [place] Urine Protein Urine Glucose (UA) Urine Ketones Urine Blood Urine Nitrite Urine Bilirubin Urine Urobilinogen Ur Leukocyte Esterase RPR Titer Nonreactive - Treatment Hospital Course: Detox Protocol Followed, Detoxed Safely, Responded well, Discharged Condition Good, Rehab Referral Accepted Patient has Accepted a Rehab Referral to: [facility] - Medication Discharge Medications: Ambulatory Orders Esomeprazole Mag Trihydrate [Nexium] 20 mg PO DAILY #30 capsule. 10/25/14 Sertraline HCl [Zoloft -] 50 mg PO DAILY #30 tablet 10/25/14 Quetiapine Fumarate [Seroquel] 100 tab PO HS #30 tablet 07/18/15 Lisinopril [Prinivil] 10 mg PO DAILY #30 tablet 03/18/16 Amlodipine Besylate [Norvasc -] 5 mg PO DAILY #30 tablet 04/10/16 Sertraline HCl [Zoloft -] 50 mg PO DAILY #30 tablet 05/24/17 - Diagnosis (1) Alcohol dependence with uncomplicated withdrawal Current Visit: Yes Status: Acute (2) Cocaine dependence Current Visit: Yes Status: Acute Qualifiers: Substance use status: uncomplicated Qualified Code(s): F14.20 - Cocaine dependence, uncomplicated (3) Nicotine dependence Current Visit: Yes Status: Acute Qualifiers: Nicotine product type: cigarettes Substance use status: in withdrawal Qualified Code(s): F17.213 - Nicotine dependence, cigarettes, with withdrawal (4) Opioid dependence on agonist therapy Current Visit: Yes Status: Chronic (5) GERD (gastroesophageal reflux disease) Current Visit: Yes Status: Chronic Qualifiers: Esophagitis presence: esophagitis presence not specified Qualified Code(s) : K21.9 - Gastro-esophageal reflux disease without esophagitis (6) HTN (hypertension) Current Visit: Yes Status: Chronic Qualifiers: Hypertension type: essential hypertension Qualified Code(s): I10 - Essential (primary) hypertension - AMA Did Patient Leave Against Medical Advice: No
--- NOTE | 2017-05-27 12:20 | PN ---
S Progress Note (SOAP) Subjective: DETOX COMPLETED. ALERT O X 3. PT IS REFERRED TO [facility] [[email or web address] REHAB TODAY. Objective: 05/27/17 12:20 Vital Signs Temperature 97.5 F L 05/27/17 09:21 Pulse Rate 51 L 05/27/17 09:21 Respiratory Rate 18 05/27/17 09:21 Blood Pressure 117/71 05/27/17 09:21 O2 Sat by Pulse Oximetry (%) Laboratory Last Values WBC 4.9 K/mm3 (4.0-10.0) 05/24/17 08:00 RBC 4.56 M/mm3 (4.00-5.60) 05/24/17 08:00 Hgb 13.4 GM/dL (11.7-16.9) 05/24/17 08:00 Hct 39.8 % (35.4-49) 05/24/17 08:00 MCV 87.3 fl (80-96) 05/24/17 08:00 MCH 29.3 pg (25.7-33.7) 05/24/17 08:00 MCHC 33.6 g/dl (32.0-35.9) 05/24/17 08:00 RDW 13.4 % (11.9-15.9) 05/24/17 08:00 Plt Count 361 K/MM3 (134-434) 05/24/17 08:00 MPV 7.6 fl (7.5-11.1) 05/24/17 08:00 Sodium 142 mmol/L (136-145) 05/24/17 08:00 Potassium 4.3 mmol/L (3.5-5.1) 05/24/17 08:00 Chloride 107 mmol/L (98-107) 05/24/17 08:00 Carbon Dioxide 30 mmol/L (21-32) 05/24/17 08:00 Anion Gap 5 (8-16) L 05/24/17 08:00 BUN 14 mg/dL (7-18) 05/24/17 08:00 Creatinine 0.8 mg/dL (0.7-1.3) 05/24/17 08:00 Creat Clearance w eGFR > 60 (>60) 05/24/17 08:00 Random Glucose 104 mg/dL (74-106) 05/24/17 08:00 Calcium 8.4 mg/dL (8.5-10.1) L 05/24/17 08:00 Total Bilirubin 0.2 mg/dL (0.2-1.0) D 05/24/17 08:00 AST 33 U/L (15-37) D 05/24/17 08:00 ALT 28 U/L (12-78) D 05/24/17 08:00 Alkaline Phosphatase 121 U/L (45-117) H 05/24/17 08:00 Total Protein 7.2 g/dl (6.4-8.2) 05/24/17 08:00 Albumin 2.6 g/dl (3.4-5.0) L 05/24/17 08:00 Urine Color Ltyellow 05/24/17 00:05 Urine Appearance Clear 05/24/17 00:05 Urine pH 5.0 (5.0-8.0) 05/24/17 00:05 Ur Specific [place] 1.013 (1.001-1.035) 05/24/17 00:05 Urine Protein Negative (NEGATIVE) 05/24/17 00:05 Urine Glucose (UA) Negative (NEGATIVE) 05/24/17 00:05 Urine Ketones Negative (NEGATIVE) 05/24/17 00:05 Urine Blood Negative (NEGATIVE) 05/24/17 00:05 Urine Nitrite Negative (NEGATIVE) 05/24/17 00:05 Urine Bilirubin Negative (<2.0 mg/dL) 05/24/17 00:05 Urine Urobilinogen 2.0 mg/dL (0.2-1.0) 05/24/17 00:05 Ur Leukocyte Esterase Negative (NEGATIVE) 05/24/17 00:05 RPR Titer Nonreactive (NONREACTIVE) 05/24/17 08:00 Assessment: 05/27/17 12:20 MEDICALLY STABLE Plan: D/C PT TODAY TO REHAB.
[2017-05-27 13:22] VITALS: BP 108/66; PULSE 44; TEMP 97.8
== END 2017-05-27 14:36 | disposition other institution (70) | DRG 773 ==
LOC: YASAS 12:21 → Y3N 17:32
PROVIDERS: ADMIT Internal Medicine; ATTEND Internal Medicine
PROC: HZ2ZZZZ Detoxification Services for Substance Abuse Treatment (ICD-10-PCS; principal; 2017-05-23)
DX: F11.20 Opioid dependence, uncomplicated (principal); F10.230 Alcohol dependence with withdrawal, uncomplicated; F14.20 Cocaine dependence, uncomplicated; F17.213 Nicotine dependence, cigarettes, with withdrawal; F25.9 Schizoaffective disorder, unspecified; F31.9 Bipolar disorder, unspecified; I10 Essential (primary) hypertension; K21.9 Gastro-esophageal reflux disease without esophagitis; B18.2 Chronic viral hepatitis C; Z90.81 Acquired absence of spleen
CPT/HCPCS: 36415; 71046-TC-FY; 80053; 81003; 85027; 86593; 93005; 93010

== ENCOUNTER 2017-05-27 14:42 | Inpatient (IN) | payer OTHER ==
[2017-06-10 07:09] VITALS: BP 167/100; PULSE 47; TEMP 97.9
== END 2017-06-10 11:25 | disposition home or self-care (01) | DRG 772 ==
LOC: YASAS 14:42 → Y5N 14:43
PROVIDERS: ADMIT Psychiatry & Neurology Psychiatry; ATTEND Psychiatry & Neurology Psychiatry
PROC: HZ42ZZZ Group Counseling for Substance Abuse Treatment, Cognitive-Behavioral (ICD-10-PCS; principal; 2017-05-27)
DX: F11.20 Opioid dependence, uncomplicated (principal); F10.230 Alcohol dependence with withdrawal, uncomplicated; F14.20 Cocaine dependence, uncomplicated; F17.210 Nicotine dependence, cigarettes, uncomplicated; F25.9 Schizoaffective disorder, unspecified; G47.19 Other hypersomnia; J30.1 Allergic rhinitis due to pollen; B35.3 Tinea pedis

== ENCOUNTER 2018-12-02 10:00 | Inpatient (IN) | payer OTHER ==
[2018-12-02 10:32] VITALS: BMI 24.4
--- NOTE | 2018-12-02 11:20 | HP ---
CIWA Score Nausea/Vomitin-No Nausea/No Vomiting Muscle Tremors: None Anxiety: 1-Mildly Anxious Agitation: 1-Slight > Activity Paroxysmal Sweats: No Perspiration Orientation: 0-Oriented Tacttile Disturbances: 0-None Auditory Disturbances: 0-None Visual Disturbances: 0-None Headache: 0-None Present CIWA-Ar Total Score: 2 - Admission Criteria OASAS Guidelines: Admission for Medically Managed Detox: Requires at least one of the followin. CIWA greater than 12 2. Seizures within the past 24 hours 3. Delirium tremens within the past 24 hours 4. Hallucinations within the past 24 hours 5. Acute intervention needed for co occurring medical disorder 6. Acute intervention needed for co occurring psychiatric disorder 7. Severe withdrawal that cannot be handled at a lower level of care (continued vomiting, continued diarrhea, abnormal vital signs) requiring intravenous medication and/or fluids 8. Admitting History and Physical - Smoking History Smoking history: Current every day smoker Have you smoked in the past 12 months: Yes Aproximately how many cigarettes per day: 10 - Alcohol/Substance Use Hx Alcohol Use: Yes (daily brany/beer 2 pints/2-6 pks) Admission ROS [facility] - HPI Allergies/Adverse Reactions: Allergies Allergy/AdvReac Type Severity Reaction Status Date / Time No Known Allergies Allergy Verified 05/23/17 16:56 History of Present Illness: pt here requesting detox from etoh use , reports 1 pint alcohol /day , latest use yesterday - had 1 beer , current symptoms as abov , denies symptoms if not drinking " i guess I'm alright " , reports w/d symptoms from opiate use , did not go to program yesterday or today . cocaine : 20 $ via inhalation heroin 2-3 bags/day cannabis" here and there " tobacco : 1/2 ppd mmtp - latest 2 d ago per MR 11/30/18 via [facility] Exam Limitations: Clinical Condition - Ebola screening Have you traveled outside of the country in the last 21 days: No Have you had contact with anyone from an Ebola affected area: No Do you have a fever: No - Review of Systems Constitutional: Loss of Appetite EENT: reports: See HPI Respiratory: reports: No Symptoms reported Cardiac: reports: No Symptoms Reported GI: reports: Poor Appetite : reports: No Symptoms Reported Musculoskeletal: reports: Back Pain Integumentary: reports: No Symptoms Reported Neuro: reports: No Symptoms reported Endocrine: reports: No Symptoms Reported Psychiatric: reports: Orientated x3, Depressed Patient History - Patient Medical History Hx Anemia: No Hx Asthma: No Hx Chronic Obstructive Pulmonary Disease (COPD): No Hx Cancer: No Hx Cardiac Disorders: Yes Hx Congestive Heart Failure: No Hx Hypertension: Yes Hx Hypercholesterolemia: No Hx Pacemaker: No HX Cerebrovascular Accident: No Hx Seizures: No Hx Dementia: No Hx Diabetes: No Hx Gastrointestinal Disorders: Yes Hx Liver Disease: No Hx Genitourinary Disorders: No Hx Sexually Transmitted Disorders: No Hx Renal Disease (ESRD): No Hx Thyroid Disease: No Hx Human Immunodeficiency Virus (HIV): No (03/28 last negative) Hx Hepatitis C: Yes (2004) Hx Depression: Yes Hx Suicide Attempt: No Hx Bipolar Disorder: Yes (no medication) Hx Schizophrenia: No - Patient Surgical History Past Surgical History: Yes Hx Neurologic Surgery: No Hx Cataract Extraction: No Hx Cardiac Surgery: No Hx Lung Surgery: No Hx Breast Surgery: No Hx Breast Biopsy: No Hx Abdominal Surgery: Yes (splenectomy at age 17) Hx Appendectomy: No Hx Cholecystectomy: No Hx Genitourinary Surgery: No Hx Section: No Hx Orthopedic Surgery: No Anesthesia Reaction: No - Smoking Cessation Smoking history: Current every day smoker Have you smoked in the past 12 months: Yes Aproximately how many cigarettes per day: 10 Hx Chewing Tobacco Use: No Initiated information on smoking cessation: Yes 'Breaking Loose' booklet given: 12/02/18 - Substances abused Alcohol Substance route: Oral Frequency: 3-6 times per week Amount used: 6 packs of beer Age of first use: 12 Date of last use: 12/01/18 Heroin Substance route: Inhalation Frequency: Daily Amount used: 2 bags Age of first use: 20 Date of last use: 12/01/18 Cocaine Substance route: Inhalation Frequency: 3-6 times per week Amount used: $20 Age of first use: 20 Date of last use: 12/01/18 Admission Physical Exam [facility] - Vital Signs Vital Signs: Vital Signs - 24 hr 12/02/18 10:17 Temperature 97.1 F L Pulse Rate 56 L Respiratory 18 Rate Blood Pressure 196/92 H - Physical General Appearance: Yes: Other (fatigued, falls asleep frequently during interview) HEENTM: Yes: EOMI, Hearing grossly Normal, Normocephalic, Normal Voice, Other ( r supraorbital suture - per pt fell went to hospital , had laceration repaired > 2 weeks ago, went to [facility]) Respiratory: Yes: Chest Non-Tender, Lungs Clear, Normal Breath Sounds, No Respiratory Distress, No Accessory Muscle Use Neck: Yes: No masses,lesions,Nodules, Trachea in good position Cardiology: Yes: Regular Rhythm, Regular Rate, S1, S2 Abdominal: Yes: Non Tender, Soft Musculoskeletal: Yes: full range of Motion, Gait Steady Neurological: Yes: Fully Oriented, Alert, Motor Strength 5/5, Depressed Affect Integumentary: Yes: Warm - Diagnostic (1) Alcohol dependence Current Visit: Yes Status: Chronic Qualifiers: Substance use status: uncomplicated Qualified Code(s): F10.20 - Alcohol dependence, uncomplicated (2) Cocaine dependence Current Visit: Yes Status: Acute Qualifiers: Substance use status: uncomplicated Qualified Code(s): F14.20 - Cocaine dependence, uncomplicated (3) Opioid dependence on agonist therapy Current Visit: Yes Status: Chronic Breathalyzer - Breathalyzer Breathalyzer: 0 Urine Drug Screen - Test Device Lot number: [id number] Expiration date: 07/11/20 - Control Is test valid?: Yes - Results Drug screen NEGATIVE: No Urine drug screen results: THC-Marijuana, FAIZA-Cocaine, MOP-Opiates, MTD- Methadone Inpatient Rehab Admission - Rehab Decision to Admit Inpatient rehab admission?: Yes - Initial Determination Are CD services needed?: Yes Free of communicable disease: Yes Not in need of hospitalization: Yes - Rehab Admission Criteria Previous failed treatment: No Poor recovery environment: No Comorbidities: Yes Lacks judgement: Yes Patient is meeting Inpatient Rehab admission criteria:: Yes
[2018-12-02] MEDS ORDERED: MENTHOL/PHENOL 1 EACH UD MM PRN (11:40)
[2018-12-02] MEDS ORDERED: P-EPHED 60MG/TRIPROLIDI 2.5MG TABLET PO PRN (11:40)
[2018-12-02] MEDS ORDERED: NICOTINE POLACRILEX 2 MG GUM BUC PRN (11:40)
[2018-12-02] MEDS ORDERED: LOPERAMIDE HCL 2 MG CAPSULE PO PRN (11:40)
[2018-12-02] MEDS ORDERED: ACETAMINOPHEN 325 MG TABLET (FP) PO PRN (11:40)
[2018-12-02] MEDS ORDERED: MAGNESIUM CITRATE 300 ML BOTTLE PO PRN (11:40)
[2018-12-02] MEDS ORDERED: guaiFENesin 200 MG/10 ML 10 ML UNIT-DOSE CUPS PO PRN (11:40)
[2018-12-02] MEDS ORDERED: METHADONE HCL 10 MG TABLET PO SCH (11:45)
[2018-12-02] MEDS ORDERED: METHADONE HCL 10 MG TABLET ONE (12:43)
[2018-12-02] MEDS ORDERED: METHADONE HCL 40 MG DISPERSABLE TABLET ONE (12:44)
[2018-12-02] MEDS: METHADONE 80 MG, METHADONE 30 MG PO SCH (12:47)
--- NOTE | 2018-12-02 13:25 | CONSULT ---
Consultation: CONSULT REQUEST: We have been asked to medically evaluate this patient for hypertension HISTORY OF PRESENT ILLNESS: 58 year old male with a history of hypertension and alcohol/heroin/cocaine abuse is here for detox. Medical consult placed for hypertension. Has a history of hypertension but has not been on medications and has had poor followup with a primary care physician. The previous time patient was admitted here for detox he was placed on both amlodipine and lisinopril, which seemed to control his pressure, however there were two reported pressures that were systolic in the 70s during that time. Patient has been bradycardic while here with a HR in the 40s-50s. Patient reports no symptoms including chest pain, shortness of breath, nausea, vomiting, diarrhea, fevers, chills. No allergies Smokin/2 ppd for many years Alcohol: daily Drugs: cocaine and heroin daily Family history of Hypertension, unclear which family members REVIEW OF SYSTEMS: CONSTITUTIONAL: Absent: fever, chills, diaphoresis, generalized weakness, malaise, loss of appetite, weight change HEENT: Absent: rhinorrhea, nasal congestion, throat pain, throat swelling, difficulty swallowing, mouth swelling, ear pain, eye pain, visual changes CARDIOVASCULAR: Absent: chest pain, syncope, palpitations, irregular heart rate, lightheadedness , peripheral edema RESPIRATORY: Absent: cough, shortness of breath, dyspnea with exertion, orthopnea, wheezing, stridor, hemoptysis GASTROINTESTINAL: Absent: abdominal pain, abdominal distension, nausea, vomiting, diarrhea, constipation, melena, hematochezia GENITOURINARY: Absent: dysuria, frequency, urgency, hesitancy, hematuria, flank pain, genital pain MUSCULOSKELETAL: Absent: myalgia, arthralgia, joint swelling, back pain, neck pain SKIN: Absent: rash, itching, pallor HEMATOLOGIC/IMMUNOLOGIC: Absent: easy bleeding, easy bruising, lymphadenopathy, frequent infections ENDOCRINE: Absent: unexplained weight gain, unexplained weight loss, heat intolerance, cold intolerance NEUROLOGIC: Absent: headache, focal weakness or paresthesias, dizziness, unsteady gait, seizure, mental status changes, bladder or bowel incontinence PSYCHIATRIC: Absent: anxiety, depression, suicidal or homicidal ideation, hallucinations. PHYSICAL EXAMINATION Vital Signs - 24 hr 12/02/18 12/02/18 10:17 12:46 Temperature 97.1 F L 98 F Pulse Rate 56 L 53 L Respiratory 18 18 Rate Blood Pressure 196/92 H 168/104 H GENERAL: A&Ox3, no acute distress EYES: PERRLA, EOMI, 3 stitches noted above R eyebrow, not draining ENT: Moist mucus membranes NECK: No JVD LUNGS: CTA, no wheezes HEART: RRR, no murmurs ABDOMEN: Soft, nontender, BS present MUSCULOSKELETAL: No CVA Tenderness EXTREMITIES: 2+ pulses, no edema. NEUROLOGICAL: Cranial nerves II-XII intact. Active Medications Generic Name Dose Route Start Last Admin Trade Name Freq PRN Reason Stop Dose Admin Acetaminophen 650 mg 12/02/18 11:40 Tylenol - PO Q4H PRN FEVER Al Hydroxide/Mg Hydroxide 30 ml 12/02/18 11:40 Mylanta Oral Suspension - PO Q6H PRN DYSPEPSIA Eucalyptus/Menthol/Phenol/Sorbitol 1 each 12/02/18 11:40 Cepastat Lozenge - MM Q4H PRN SORE THROAT Guaifenesin 10 ml 12/02/18 11:40 Robitussin - PO Q6H PRN COUGH Ibuprofen 400 mg 12/02/18 11:40 Motrin - PO Q6H PRN Pain level 4-6 Lisinopril 10 mg 12/02/18 13:30 Prinivil PO DAILY LISSY Loperamide HCl 4 mg 12/02/18 11:40 Imodium - PO Q6H PRN DIARRHEA Magnesium Citrate 300 ml 12/02/18 11:40 Citroma - PO Q48H PRN CONSTIPATION Magnesium Hydroxide 30 ml 12/02/18 11:40 Milk Of Magnesia - PO DAILY PRN CONSTIPATION Melatonin 5 mg 12/02/18 22:00 Melatonin PO HS PRN INSOMNIA Methadone HCl 80 mg/ Methadone 110 mg 12/02/18 12:40 12/02/18 12:47 HCl 30 mg PO 12/09/18 12:39 110 mg DAILY@0600 LISSY Administration Nicotine Polacrilex 2 mg 12/02/18 11:40 Nicorette Gum - BUC Q2H PRN NICOTINE REPLACEMENT RX Multivit/Folic Acid/Iron 1 tab 12/03/18 10:00 Vitamins (Sjr) - PO DAILY LISSY Pseudoephedrine/Triprolidine 1 combo 12/02/18 11:40 Actifed - PO TID PRN NASAL CONGESTION Thiamine HCl 100 mg 12/02/18 22:00 Vitamin B1 - PO HS [facility] ASSESSMENT/PLAN: 58 year old male with a history of hypertension and alcohol/heroin/cocaine abuse is here for detox and evaluated for hypertension #Hypertension: stage II hypertension based on multiple BP measurements, not currently on therapy -based on patient's age, comorbidities and concurrent bradycardia, would elect to start lisinopril 10mg daily as initial treatment of this patient's hypertension -would recheck BP in a few hours and again in the morning -if continues to remain elevated, would add amlodipine 5mg daily as adjunctive therapy. Amlodipine at therapeutic doses does not affect the heart rate as it is a peripheral vasodilator and can be given between 5-10mg daily. -if patient tolerates both amlodipine and lisinopril, would titrate those as necessary to control BP with a goal of 120/80 -monitor labs for potassium and renal function as an outpatient -schedule outpatient appointment for evaluation of BP Bony Manzano D.O., PGY-3 Dispo: We will continue to follow the patient. Thank you for this consultative opportunity. Visit type - Emergency Visit Emergency Visit: No - New Patient This patient is new to me today: Yes Date on this admission: 12/02/18 - Critical Care Critical Care patient: No ATTENDING PHYSICIAN STATEMENT I saw and evaluated the patient. I reviewed the resident's note and discussed the case with the resident. I agree with the resident's findings and plan as documented. SUBJECTIVE: OBJECTIVE: ASSESSMENT AND PLAN:
[2018-12-02] MEDS: LISINOPRIL 10 MG TABLET (FP) PO SCH (14:23)
[2018-12-02 14:38] LABS: HEMATOCRIT 38.3 % (35.4-49); HEMOGLOBIN 13.1 GM/dL (11.7-16.9); MCH 30.1 pg (25.7-33.7); MEAN CELL VOLUME 88.3 fl (80-96); MEAN PLT VOLUME 7.3 fl (7.5-11.1); PLATELET COUNT 362 K/MM3 (134-434); RBC 4.34 M/mm3 (4.00-5.60); RDW 13.4 % (11.9-15.9)
[2018-12-02 14:49] LABS: ALBUMIN 3.4 g/dl (3.4-5.0); BILIRUBIN,TOTAL 0.2 mg/dL (0.2-1); BLOOD UREA NITROGEN 15.6 mg/dL (7-18); CALCIUM 8.8 mg/dL (8.5-10.1); POTASSIUM 4.1 mmol/L (3.5-5.1); TOT PROT 8.2 g/dl (6.4-8.2)
[2018-12-02] MEDS: THIAMINE HCL 100 MG TABLET (FP) PO SCH (22:25)
[2018-12-03] MEDS ORDERED: METHADONE HCL 40 MG DISPERSABLE TABLET ONE (05:53)
[2018-12-03] MEDS ORDERED: METHADONE HCL 10 MG TABLET ONE (05:53)
[2018-12-03] MEDS: METHADONE 80 MG, METHADONE 30 MG PO SCH (05:58)
[2018-12-03] MEDS: PRENATAL VITAMINS W/ FOLIC ACID TABLET (FP) PO SCH (10:40)
[2018-12-03] MEDS: LISINOPRIL 10 MG TABLET (FP) PO SCH (10:40)
[2018-12-03 17:27] LABS: PH,URINE 5.5 (5.0-8.0); URINE APPEARANCE CLEAR; URINE BILIRUBIN NEGATIVE (NEGATIVE); URINE COLOR YELLOW; URINE GLUCOSE (UA) NEGATIVE (NEGATIVE); URINE KETONE NEGATIVE (NEGATIVE); URINE LEUK ESTERASE NEGATIVE (NEGATIVE); URINE NITRITE NEGATIVE (NEGATIVE); URINE PROTEIN NEGATIVE (NEGATIVE); URINE UROBILINOGEN 0.2 mg/dL (0.2-1.0)
[2018-12-03] MEDS: THIAMINE HCL 100 MG TABLET (FP) PO SCH (21:41)
[2018-12-03] MEDS: MELATONIN 5 MG TABLETS PO PRN (21:41)
[2018-12-04] MEDS ORDERED: METHADONE HCL 10 MG TABLET ONE (05:50)
[2018-12-04] MEDS ORDERED: METHADONE HCL 40 MG DISPERSABLE TABLET ONE (05:50)
[2018-12-04] MEDS: METHADONE 80 MG, METHADONE 30 MG PO SCH (06:45)
[2018-12-04] MEDS: LISINOPRIL 10 MG TABLET (FP) PO SCH (10:35)
[2018-12-04] MEDS: PRENATAL VITAMINS W/ FOLIC ACID TABLET (FP) PO SCH (10:35)
[2018-12-04] MEDS ORDERED: hydrOXYzine PAMOATE 50 MG CAPSULE (FP) PO PRN (13:28)
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
[2018-12-04] MEDS: THIAMINE HCL 100 MG TABLET (FP) PO SCH (21:31)
[2018-12-04] MEDS: MELATONIN 5 MG TABLETS PO PRN (21:32)
[2018-12-05] MEDS ORDERED: METHADONE HCL 40 MG DISPERSABLE TABLET ONE (06:24)
[2018-12-05] MEDS ORDERED: METHADONE HCL 10 MG TABLET ONE (06:24)
[2018-12-05] MEDS: METHADONE 80 MG, METHADONE 30 MG PO SCH (06:25)
[2018-12-05] MEDS: LISINOPRIL 10 MG TABLET (FP) PO SCH (10:37)
[2018-12-05] MEDS: BACITRACIN 15 GM TUBE TOPICAL OINTMENT TP SCH (10:37)
[2018-12-05] MEDS: PRENATAL VITAMINS W/ FOLIC ACID TABLET (FP) PO SCH (10:37)
--- NOTE | 2018-12-05 13:35 | PN ---
[facility] Progress Note Note: Pt c/o insomnia and itchy dry feet. Reports melatonin 5 mg last night helped a little but able to fall asleep 3 hours later. Requested to see the psych for insomnia/wants Purasomra. Shrub Planter d/w pt to ask for melatonin and assess how effective in the coming nights. Pt is currently observed drowsy and unable to stay fully awake during encounter. . Vital Signs - 24 hr 12/05/18 12/05/18 00:30 07:13 Temperature 98.1 F Pulse Rate 54 L Respiratory 18 18 Rate Blood Pressure 154/85 Foot exam: Dry,scaly and ashy with hard callused tissues especially outer aspect of great toes. A/P Tinea Pedis Calluses Insomnia D/w pt will increase Melatonin 10 mg po HS prn. Pt is agreeable with this poc.
[2018-12-05] MEDS: TOLNAFTATE 1% CREAM 15 GM TUBE TP SCH ×2 (14:25→21:41)
[2018-12-05] MEDS: THIAMINE HCL 100 MG TABLET (FP) PO SCH (21:42)
[2018-12-05] MEDS: MELATONIN 5 MG TABLETS PO PRN (21:42)
[2018-12-06] MEDS ORDERED: METHADONE HCL 10 MG TABLET ONE (05:40)
[2018-12-06] MEDS ORDERED: METHADONE HCL 40 MG DISPERSABLE TABLET ONE (05:41)
[2018-12-06] MEDS: METHADONE 80 MG, METHADONE 30 MG PO SCH (06:20)
[2018-12-06] MEDS: LISINOPRIL 10 MG TABLET (FP) PO SCH (09:59)
[2018-12-06] MEDS: TOLNAFTATE 1% CREAM 15 GM TUBE TP SCH ×2 (09:59→21:35)
[2018-12-06] MEDS: PRENATAL VITAMINS W/ FOLIC ACID TABLET (FP) PO SCH (09:59)
[2018-12-06] MEDS: BACITRACIN 15 GM TUBE TOPICAL OINTMENT TP SCH (09:59)
[2018-12-06] MEDS: MELATONIN 5 MG TABLETS PO PRN (21:35)
[2018-12-06] MEDS: THIAMINE HCL 100 MG TABLET (FP) PO SCH (21:36)
[2018-12-07] MEDS ORDERED: METHADONE HCL 10 MG TABLET ONE (03:00)
[2018-12-07] MEDS ORDERED: METHADONE HCL 40 MG DISPERSABLE TABLET ONE (03:01)
[2018-12-07] MEDS: METHADONE 80 MG, METHADONE 30 MG PO SCH (06:22)
[2018-12-07] MEDS: PRENATAL VITAMINS W/ FOLIC ACID TABLET (FP) PO SCH (11:03)
[2018-12-07] MEDS: BACITRACIN 15 GM TUBE TOPICAL OINTMENT TP SCH (11:03)
[2018-12-07] MEDS: TOLNAFTATE 1% CREAM 15 GM TUBE TP SCH ×2 (11:03→21:36)
[2018-12-07] MEDS: LISINOPRIL 10 MG TABLET (FP) PO SCH (11:03)
[2018-12-07] MEDS: THIAMINE HCL 100 MG TABLET (FP) PO SCH (21:36)
[2018-12-07] MEDS: MELATONIN 5 MG TABLETS PO PRN (21:36)
[2018-12-08] MEDS: METHADONE 80 MG, METHADONE 30 MG PO SCH (07:00)
[2018-12-08] MEDS ORDERED: METHADONE HCL 40 MG DISPERSABLE TABLET ONE (07:02)
[2018-12-08] MEDS ORDERED: METHADONE HCL 10 MG TABLET ONE (07:02)
[2018-12-08] MEDS: LISINOPRIL 10 MG TABLET (FP) PO SCH (10:46)
[2018-12-08] MEDS: TOLNAFTATE 1% CREAM 15 GM TUBE TP SCH ×2 (10:46→21:25)
[2018-12-08] MEDS: BACITRACIN 15 GM TUBE TOPICAL OINTMENT TP SCH (10:46)
[2018-12-08] MEDS: PRENATAL VITAMINS W/ FOLIC ACID TABLET (FP) PO SCH (10:46)
[2018-12-08] MEDS: THIAMINE HCL 100 MG TABLET (FP) PO SCH (21:24)
[2018-12-08] MEDS: MELATONIN 5 MG TABLETS PO PRN (21:24)
[2018-12-09] MEDS ORDERED: METHADONE HCL 10 MG TABLET ONE (05:40)
[2018-12-09] MEDS ORDERED: METHADONE HCL 40 MG DISPERSABLE TABLET ONE (05:40)
[2018-12-09] MEDS: METHADONE 80 MG, METHADONE 30 MG PO SCH (06:37)
[2018-12-09] MEDS: LISINOPRIL 10 MG TABLET (FP) PO SCH (10:32)
[2018-12-09] MEDS: PRENATAL VITAMINS W/ FOLIC ACID TABLET (FP) PO SCH (10:32)
[2018-12-09] MEDS: BACITRACIN 15 GM TUBE TOPICAL OINTMENT TP SCH (10:32)
[2018-12-09] MEDS: TOLNAFTATE 1% CREAM 15 GM TUBE TP SCH ×2 (10:33→21:25)
[2018-12-09] MEDS: THIAMINE HCL 100 MG TABLET (FP) PO SCH (21:24)
[2018-12-09] MEDS: MELATONIN 5 MG TABLETS PO PRN (21:24)
[2018-12-10] MEDS ORDERED: METHADONE HCL 40 MG DISPERSABLE TABLET ONE (04:58)
[2018-12-10] MEDS ORDERED: METHADONE HCL 10 MG TABLET ONE (04:58)
[2018-12-10] MEDS ORDERED: METHADONE HCL 10 MG TABLET PO SCH (06:00)
[2018-12-10] MEDS: METHADONE 80 MG, METHADONE 30 MG PO SCH (06:41)
[2018-12-10] MEDS: LISINOPRIL 10 MG TABLET (FP) PO SCH (10:39)
[2018-12-10] MEDS: BACITRACIN 15 GM TUBE TOPICAL OINTMENT TP SCH (10:39)
[2018-12-10] MEDS: PRENATAL VITAMINS W/ FOLIC ACID TABLET (FP) PO SCH (10:40)
[2018-12-10] MEDS: TOLNAFTATE 1% CREAM 15 GM TUBE TP SCH ×2 (10:41→21:22)
[2018-12-10] MEDS: MAG HYDROX/AL HYDROX/SIMETH 30 ML UNIT-DOSE CUP PO PRN ×2 (13:34→21:24)
[2018-12-10] MEDS: IBUPROFEN 400 MG TABLET (FP) PO PRN (13:35)
[2018-12-10] MEDS: THIAMINE HCL 100 MG TABLET (FP) PO SCH (21:24)
[2018-12-10] MEDS: MELATONIN 5 MG TABLETS PO PRN (21:24)
[2018-12-10] MEDS: MAGNESIUM HYDROX 2400MG/30ML ORAL SUSPENSION 30 ML CUP PO PRN (21:24)
[2018-12-11] MEDS ORDERED: METHADONE HCL 10 MG TABLET ONE (05:42)
[2018-12-11] MEDS ORDERED: METHADONE HCL 40 MG DISPERSABLE TABLET ONE (05:42)
[2018-12-11] MEDS: METHADONE 80 MG, METHADONE 30 MG PO SCH (06:55)
--- NOTE | 2018-12-11 08:46 | CONSULT ---
[facility] Psychiatric Consult - Data Date of interview: 12/11/18 Admission source: [facility] Identifying data: Patient is a 58 year old single male, father of one, unemployed, homeless, and is not currently receiving financial assistance. This is one of multiple admissions for patient. Patient admitted to for alcohol and opioid dependence. Substance Abuse History: Smoking Cessation. Smoking history: Current every day smoker. Have you smoked in the past 12 months: Yes. Aproximately how many cigarettes per day: 10. Hx Chewing Tobacco Use: No. Initiated information on smoking cessation: Yes. 'Breaking Loose' booklet given: 12/02/18. - Substances abused. Alcohol. Substance route: Oral. Frequency: 3-6 times per week. Amount used: 6 packs of beer. Age of first use: 12. Date of last use: 12/01/18. Heroin. Substance route: Inhalation. Frequency: Daily. Amount used: 2 bags. Age of first use: 20. Date of last use: 12/01/18. Cocaine. Substance route: Inhalation. Frequency: 3-6 times per week. Amount used: $20. Age of first use: 20. Date of last use: 12/01/18 Medical History: hypertension, Hep C, Splenectomy at age 17 Psychiatric History: Patient's first psychiatric contact was approximately fourteen years ago while incarcerated. States he was diagnosed with Bipolar disorder and prescribed seroquel. Patient unable to provide a cohesive psychiatric history. Mr. Cosby reports on and off treatment througout the years. He most recently received psychiatric treatment at the [facility] methadone clinic approximately 2 years ago but is unable to recall the medications prescribed. As per previous notes patient has been prescribed zoloft , trazdone, seroquel and klonopin. Patient denies history of psychiatric hospitalizations and suicide attempt. At present patient reports feeling sad and is sleeping poorly. Physical/Sexual Abuse/Trauma History: denies. Additional Comment: Patient is on Methadone 110mg. Mental Status Exam - Mental Status Exam Alert and Oriented to: Time, Place, Person Cognitive Function: Good Patient Appearance: Well Groomed Mood: Withdrawn Affect: Mood Congruent Patient Behavior: Fatigued Speech Pattern: Appropriate Voice Loudness: Mildly Soft/Quiet Thought Process: Goal Oriented Thought Disorder: Not Present Hallucinations: Denies Suicidal Ideation: Denies Homicidal Ideation: Denies Insight/Judgement: Poor Sleep: Poorly Appetite: Fair Muscle strength/Tone: Normal Gait/Station: Normal Psychiatric Findings - Problem List ([place] 1, 2,3) (1) Substance-induced sleep disorder Current Visit: Yes Status: Acute (2) Cocaine dependence Current Visit: Yes Status: Acute Qualifiers: Substance use status: uncomplicated Qualified Code(s): F14.20 - Cocaine dependence, uncomplicated (3) Alcohol dependence Current Visit: Yes Status: Chronic Qualifiers: Substance use status: uncomplicated Qualified Code(s): F10.20 - Alcohol dependence, uncomplicated (4) Opioid dependence on agonist therapy Current Visit: Yes Status: Chronic (5) Substance induced mood disorder Current Visit: Yes Status: Acute (6) Mood disorder Current Visit: Yes Status: Suspected - Initial Treatment Plan Initial Treatment Plan: Psychoeducation provided. Rehab in progress. Will order Seroquel 50mg HS. Benefits and side effects discussed. Verbal consent given.
[2018-12-11] MEDS: LISINOPRIL 10 MG TABLET (FP) PO SCH (10:55)
[2018-12-11] MEDS: PRENATAL VITAMINS W/ FOLIC ACID TABLET (FP) PO SCH (10:55)
[2018-12-11] MEDS: TOLNAFTATE 1% CREAM 15 GM TUBE TP SCH ×2 (10:56→21:30)
[2018-12-11] MEDS: BACITRACIN 15 GM TUBE TOPICAL OINTMENT TP SCH (10:56)
[2018-12-11] MEDS: THIAMINE HCL 100 MG TABLET (FP) PO SCH (21:29)
[2018-12-11] MEDS: QUEtiapine FUMARATE 50 MG TABLET PO SCH (21:29)
[2018-12-11] MEDS: MAGNESIUM HYDROX 2400MG/30ML ORAL SUSPENSION 30 ML CUP PO PRN (21:31)
[2018-12-12] MEDS ORDERED: METHADONE HCL 10 MG TABLET ONE (05:44)
[2018-12-12] MEDS ORDERED: METHADONE HCL 40 MG DISPERSABLE TABLET ONE (05:44)
[2018-12-12] MEDS: METHADONE 80 MG, METHADONE 30 MG PO SCH (06:30)
[2018-12-12] MEDS: LISINOPRIL 10 MG TABLET (FP) PO SCH (10:25)
[2018-12-12] MEDS: TOLNAFTATE 1% CREAM 15 GM TUBE TP SCH ×2 (10:25→21:21)
[2018-12-12] MEDS: PRENATAL VITAMINS W/ FOLIC ACID TABLET (FP) PO SCH (10:25)
[2018-12-12] MEDS: BACITRACIN 15 GM TUBE TOPICAL OINTMENT TP SCH (10:26)
[2018-12-12] MEDS: MELATONIN 5 MG TABLETS PO PRN (21:20)
[2018-12-12] MEDS: QUEtiapine FUMARATE 50 MG TABLET PO SCH (21:20)
[2018-12-12] MEDS: THIAMINE HCL 100 MG TABLET (FP) PO SCH (21:20)
[2018-12-13] MEDS ORDERED: METHADONE HCL 40 MG DISPERSABLE TABLET ONE (05:15)
[2018-12-13] MEDS ORDERED: METHADONE HCL 10 MG TABLET ONE (05:15)
[2018-12-13] MEDS: METHADONE 80 MG, METHADONE 30 MG PO SCH (06:41)
[2018-12-13] MEDS: LISINOPRIL 10 MG TABLET (FP) PO SCH (10:06)
[2018-12-13] MEDS: TOLNAFTATE 1% CREAM 15 GM TUBE TP SCH ×2 (10:06→21:23)
[2018-12-13] MEDS: PRENATAL VITAMINS W/ FOLIC ACID TABLET (FP) PO SCH (10:06)
[2018-12-13] MEDS: BACITRACIN 15 GM TUBE TOPICAL OINTMENT TP SCH (10:06)
[2018-12-13] MEDS: MELATONIN 5 MG TABLETS PO PRN (21:22)
[2018-12-13] MEDS: THIAMINE HCL 100 MG TABLET (FP) PO SCH (21:22)
[2018-12-13] MEDS: QUEtiapine FUMARATE 50 MG TABLET PO SCH (21:22)
[2018-12-13] MEDS: IBUPROFEN 400 MG TABLET (FP) PO PRN (21:24)
[2018-12-14] MEDS ORDERED: METHADONE HCL 10 MG TABLET ONE (05:55)
[2018-12-14] MEDS ORDERED: METHADONE HCL 40 MG DISPERSABLE TABLET ONE (05:56)
[2018-12-14] MEDS: METHADONE 80 MG, METHADONE 30 MG PO SCH (06:16)
[2018-12-14] MEDS: PRENATAL VITAMINS W/ FOLIC ACID TABLET (FP) PO SCH (09:28)
[2018-12-14] MEDS: LISINOPRIL 10 MG TABLET (FP) PO SCH (09:28)
[2018-12-14] MEDS: BACITRACIN 15 GM TUBE TOPICAL OINTMENT TP SCH (09:28)
[2018-12-14] MEDS: TOLNAFTATE 1% CREAM 15 GM TUBE TP SCH ×2 (09:28→21:23)
[2018-12-14] MEDS: THIAMINE HCL 100 MG TABLET (FP) PO SCH (21:23)
[2018-12-14] MEDS: QUEtiapine FUMARATE 50 MG TABLET PO SCH (21:23)
[2018-12-14] MEDS: MELATONIN 5 MG TABLETS PO PRN (21:24)
[2018-12-14] MEDS: IBUPROFEN 400 MG TABLET (FP) PO PRN (21:24)
[2018-12-15] MEDS ORDERED: METHADONE HCL 10 MG TABLET ONE (04:31)
[2018-12-15] MEDS ORDERED: METHADONE HCL 40 MG DISPERSABLE TABLET ONE (04:32)
[2018-12-15] MEDS: METHADONE 80 MG, METHADONE 30 MG PO SCH (06:09)
[2018-12-15] MEDS: TOLNAFTATE 1% CREAM 15 GM TUBE TP SCH ×2 (09:55→21:18)
[2018-12-15] MEDS: LISINOPRIL 10 MG TABLET (FP) PO SCH (09:55)
[2018-12-15] MEDS: PRENATAL VITAMINS W/ FOLIC ACID TABLET (FP) PO SCH (09:55)
[2018-12-15] MEDS: BACITRACIN 15 GM TUBE TOPICAL OINTMENT TP SCH (09:55)
--- NOTE | 2018-12-15 13:49 | PN ---
[facility] Progress Note Note: Patient is scheduled for discharge tomorrow. Script for 30 days supply of Seroquel 50 mg/hs will be electronically transmitted to [facility] at [address] [place] [address]
[2018-12-15] MEDS: THIAMINE HCL 100 MG TABLET (FP) PO SCH (21:16)
[2018-12-15] MEDS: QUEtiapine FUMARATE 50 MG TABLET PO SCH (21:16)
[2018-12-15] MEDS: IBUPROFEN 400 MG TABLET (FP) PO PRN (21:17)
[2018-12-16 07:53] VITALS: BP 150/82; PULSE 51; TEMP 97.3
[2018-12-16] MEDS: PRENATAL VITAMINS W/ FOLIC ACID TABLET (FP) PO SCH (10:42)
[2018-12-16] MEDS: TOLNAFTATE 1% CREAM 15 GM TUBE TP SCH (10:42)
[2018-12-16] MEDS: BACITRACIN 15 GM TUBE TOPICAL OINTMENT TP SCH (10:42)
[2018-12-16] MEDS: LISINOPRIL 10 MG TABLET (FP) PO SCH (10:42)
[2018-12-16] MEDS ORDERED: METHADONE HCL 10 MG TABLET PO ONE (11:00)
--- NOTE | 2018-12-16 11:02 | DS ---
[facility] Rehab Discharge Summary - [facility] Rehab Discharge Summary Admission Date: 12/02/18 Discharge Date: 12/16/18 - History Present History: Alcohol dependence, Cocaine dependence, MMTP, Opioid dependence Additional Comments: Pt is a 58 y/o male admitted to rehab and discharging today. Pt has been referred to aftercare treatment as recommended and primary care at [facility] for medical management. Pertinent Past History: HTN GERD Hep C Bipolar Disorder - Discharge Physical Exam Vital Signs: Vital Signs Temperature 97.3 F L 12/16/18 07:52 Pulse Rate 51 L 12/16/18 07:52 Respiratory Rate 18 12/16/18 07:52 Blood Pressure 150/82 12/16/18 07:52 O2 Sat by Pulse Oximetry (%) Alert o x 3 nad oob ambulating with steady gait cardiac:s1 s2,rrr lungs;cta,kyle. abdomen:soft,+bs,nt,nd extremities/skin:no edema,full ROM,skin intact. Pertinent Admission Physical Exam Findings: Laboratory Tests 12/02/18 12/02/18 12/02/18 12:20 12:20 12:20 WBC 4.0 RBC 4.34 Hgb 13.1 Hct 38.3 MCV 88.3 MCH 30.1 MCHC 34.0 RDW 13.4 Plt Count 362 MPV 7.3 L Sodium 139 Potassium 4.1 Chloride 104 Carbon Dioxide 28 Anion Gap 6 L BUN 15.6 Creatinine 1.0 Est GFR (CKD-EPI)AfAm 96.40 Est GFR (CKD-EPI)NonAf 83.18 POC Glucometer Random Glucose 123 H Calcium 8.8 Total Bilirubin 0.2 AST 32 ALT 27 Alkaline Phosphatase 155 H Total Protein 8.2 Albumin 3.4 Urine Color Urine Appearance Urine pH Ur Specific [place] Urine Protein Urine Glucose (UA) Urine Ketones Urine Blood Urine Nitrite Urine Bilirubin Urine Urobilinogen Ur Leukocyte Esterase RPR Titer Nonreactive 12/03/18 12/11/18 12/12/18 14:00 07:07 07:13 WBC RBC Hgb Hct MCV MCH MCHC RDW Plt Count MPV Sodium Potassium Chloride Carbon Dioxide Anion Gap BUN Creatinine Est GFR (CKD-EPI)AfAm Est GFR (CKD-EPI)NonAf POC Glucometer 90 94 Random Glucose Calcium Total Bilirubin AST ALT Alkaline Phosphatase Total Protein Albumin Urine Color Yellow Urine Appearance Clear Urine pH 5.5 Ur Specific [place] 1.023 Urine Protein Negative Urine Glucose (UA) Negative Urine Ketones Negative Urine Blood Negative Urine Nitrite Negative Urine Bilirubin Negative Urine Urobilinogen 0.2 Ur Leukocyte Esterase Negative RPR Titer 12/13/18 12/14/18 12/15/18 06:38 06:26 07:22 WBC RBC Hgb Hct MCV MCH MCHC RDW Plt Count MPV Sodium Potassium Chloride Carbon Dioxide Anion Gap BUN Creatinine Est GFR (CKD-EPI)AfAm Est GFR (CKD-EPI)NonAf POC Glucometer 99 136 158 Random Glucose Calcium Total Bilirubin AST ALT Alkaline Phosphatase Total Protein Albumin Urine Color Urine Appearance Urine pH Ur Specific [place] Urine Protein Urine Glucose (UA) Urine Ketones Urine Blood Urine Nitrite Urine Bilirubin Urine Urobilinogen Ur Leukocyte Esterase RPR Titer - Treatment Discharge Condition: Discharge condition good Hospital Course: Rehabilitated safely and responded well CD aftercare referral Accepted - Medication Discharge Medications: Ambulatory Orders Quetiapine Fumarate [Seroquel -] 50 mg PO HS 12/10/18 Quetiapine Fumarate [Seroquel -] 50 mg PO HS #30 tablet 12/15/18 Lisinopril [Prinivil] 10 mg PO DAILY #30 tablet 12/16/18 - Medication-Assisted Treatment (MAT) Medication-Assisted Treatment (MAT): No - Discharge Instructions Diet, activity, other medical instructions: Diet:JUANPABLO Activity: oob ad may Other medical instructions:follow up with primary care at [facility] within 1-2 weeks after discharge. follow up with CD aftercare recommendation at [facility] treatment. - Diagnosis (1) Cocaine dependence Current Visit: Yes Status: Chronic Qualifiers: Substance use status: uncomplicated Qualified Code(s): F14.20 - Cocaine dependence, uncomplicated (2) Alcohol dependence Current Visit: Yes Status: Chronic Qualifiers: Substance use status: uncomplicated Qualified Code(s): F10.20 - Alcohol dependence, uncomplicated (3) Nicotine dependence Current Visit: Yes Status: Chronic Qualifiers: Nicotine product type: cigarettes Substance use status: uncomplicated Qualified Code(s): F17.210 - Nicotine dependence, cigarettes, uncomplicated (4) Tinea pedis Current Visit: Yes Status: Acute Qualifiers: Laterality: bilateral Qualified Code(s): B35.3 - Tinea pedis (5) GERD (gastroesophageal reflux disease) Current Visit: Yes Status: Chronic Qualifiers: Esophagitis presence: esophagitis presence not specified Qualified Code(s) : K21.9 - Gastro-esophageal reflux disease without esophagitis (6) HTN (hypertension) Current Visit: Yes Status: Chronic Qualifiers: Hypertension type: essential hypertension Qualified Code(s): I10 - Essential (primary) hypertension (7) Hepatitis C Current Visit: Yes Status: Chronic Qualifiers: Viral hepatitis chronicity: chronic Hepatic coma status: without hepatic coma Qualified Code(s): B18.2 - Chronic viral hepatitis C (8) Methadone maintenance therapy patient Current Visit: Yes Status: Chronic - Follow-up Referral Minutes to complete discharge: 20 - AMA Did Patient Leave Against Medical Advice: No Additional Comments: Lisinopril 10 mg po daily #30 electronically sent to pt's home [facility] pharmacy on [place], [place].
[2018-12-16] MEDS ORDERED: METHADONE 80 MG, METHADONE 30 MG PO ONE (11:10)
[2018-12-16] MEDS ORDERED: METHADONE HCL 40 MG DISPERSABLE TABLET ONE (11:17)
[2018-12-16] MEDS ORDERED: METHADONE HCL 10 MG TABLET ONE (11:17)
== END 2018-12-16 11:40 | disposition home or self-care (01) | DRG 772 ==
LOC: YASAS 10:00 → Y5N 12:18
PROVIDERS: ADMIT Neuromusculoskeletal Medicine & OMM; ATTEND Neuromusculoskeletal Medicine & OMM
PROC: HZ42ZZZ Group Counseling for Substance Abuse Treatment, Cognitive-Behavioral (ICD-10-PCS; principal; 2018-12-02)
PROC: 8E09XY8 Suture Removal from Head and Neck Region (ICD-10-PCS; 2018-12-04)
DX: F10.20 Alcohol dependence, uncomplicated (principal); F11.20 Opioid dependence, uncomplicated; F14.20 Cocaine dependence, uncomplicated; F17.210 Nicotine dependence, cigarettes, uncomplicated; F19.24 Other psychoactive substance dependence with psychoactive substance-induced mood disorder; F39 Unspecified mood [affective] disorder; I10 Essential (primary) hypertension; K21.9 Gastro-esophageal reflux disease without esophagitis; B35.3 Tinea pedis; B18.2 Chronic viral hepatitis C; G47.00 Insomnia, unspecified; L84 Corns and callosities; Z48.02 Encounter for removal of sutures
CPT/HCPCS: 36415; 71046-TC-FY; 80053; 81003; 82962; 85027; 86593

== ENCOUNTER 2019-08-18 20:46 | Inpatient (IN) | payer OTHER ==
[2019-08-18 21:02] VITALS: BMI 24.1
--- NOTE | 2019-08-18 21:13 | HP ---
CIWA Score Nausea/Vomitin-No Nausea/No Vomiting Muscle Tremors: 4-Moderate,w/Arms Extend Anxiety: 4-Mod. Anxious/Guarded Agitation: 4-Moderately Restless Paroxysmal Sweats: 3 Orientation: 0-Oriented Tacttile Disturbances: 0-None Auditory Disturbances: 0-None Visual Disturbances: 0-None Headache: 1-Very Mild CIWA-Ar Total Score: 16 - Admission Criteria OASAS Guidelines: Admission for Medically Managed Detox: Requires at least one of the followin. CIWA greater than 12 2. Seizures within the past 24 hours 3. Delirium tremens within the past 24 hours 4. Hallucinations within the past 24 hours 5. Acute intervention needed for co occurring medical disorder 6. Acute intervention needed for co occurring psychiatric disorder 7. Severe withdrawal that cannot be handled at a lower level of care (continued vomiting, continued diarrhea, abnormal vital signs) requiring intravenous medication and/or fluids 8. Admitting History and Physical - Smoking History Smoking history: Current every day smoker Have you smoked in the past 12 months: Yes Aproximately how many cigarettes per day: 10 - Alcohol/Substance Use Hx Alcohol Use: Yes (daily brany/beer 2 pints/2-6 pks) Admission [facility] Chief Complaint: C/O ALCOHOL WITHDRAWAL, SEEKING DETOX Allergies/Adverse Reactions: Allergies Allergy/AdvReac Type Severity Reaction Status Date / Time No Known Allergies Allergy Verified 08/18/19 20:53 History of Present Illness: HERE FOR ALCOHOL DETOX. CLIENT IS SELF REFERRED. KNOWN TO PROGRAM, LAST HERE 2019 FOR REHAB. PRESENTS WITH C/O ALCOHOL WITHDRAWAL. STATES LAST DRINK A FEW HOURS AGO. HE STATES HE DRINKS ALL DAY AND CANT STOP DRINKING. 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 DENIES SI/HI/AVH, SEZURES AND BLACK OUTS. HE IS ALSO ON MMTP AT [facility]. REPORTS LAST DOSED TODAY, PENDING VERIFICATION. HOMELESS, UNEMPLOYED, DENIES LEGALS. Exam Limitations: Intoxication (STABLE WITH ONSET OF WITHDRAWAL SX'S), Physical Impairment (UNSTEADY GAIT 2/2 INTOXICATION) - Ebola screening Have you traveled outside of the country in the last 21 days: No Have you had contact with anyone from an Ebola affected area: No Have you been sick,other than usual withdrawal symptoms: No Do you have a fever: No - Review of Systems Constitutional: Chills, Loss of Appetite, Night Sweats, Changes in sleep, Unintentional Wgt. Loss EENT: reports: Dental Problems (POOR DENTITION) Respiratory: reports: No Symptoms reported Cardiac: reports: No Symptoms Reported GI: reports: Poor Appetite, Poor Fluid Intake : reports: No Symptoms Reported Musculoskeletal: reports: No Symptoms Reported Integumentary: reports: No Symptoms Reported Neuro: reports: Headache, Tremors (2/2 WITHDRAWAL SX'S) Endocrine: reports: No Symptoms Reported Hematology: reports: No Symptoms Reported Psychiatric: reports: Orientated x3, Agitated (IRRITABLE), Depressed Other Systems: Reviewed and Negative Patient History - Patient Medical History Hx Anemia: No Hx Asthma: No Hx Chronic Obstructive Pulmonary Disease (COPD): No Hx Cancer: No Hx Cardiac Disorders: No Hx Congestive Heart Failure: No Hx Hypertension: Yes Hx Hypercholesterolemia: No Hx Pacemaker: No HX Cerebrovascular Accident: No Hx Seizures: No Hx Dementia: No Hx Diabetes: No Hx Gastrointestinal Disorders: Yes Hx Liver Disease: No Hx Genitourinary Disorders: No Hx Sexually Transmitted Disorders: No Hx Renal Disease (ESRD): No Hx Thyroid Disease: No Hx Human Immunodeficiency Virus (HIV): No (03/28 last negative) Hx Hepatitis C: Yes (2004) Hx Depression: Yes Hx Suicide Attempt: No Hx Bipolar Disorder: Yes (no medication) Hx Schizophrenia: No - Patient Surgical History Past Surgical History: Yes Hx Neurologic Surgery: No Hx Cataract Extraction: No Hx Cardiac Surgery: No Hx Lung Surgery: No Hx Breast Surgery: No Hx Breast Biopsy: No Hx Abdominal Surgery: Yes (splenectomy at age 17) Hx Appendectomy: No Hx Cholecystectomy: No Hx Genitourinary Surgery: No Hx Section: No Hx Orthopedic Surgery: No Anesthesia Reaction: No - PPD History Previous Implant?: Yes Documented Results: Positive w/o proof Implanted On Prior [facility] Admission?: No Date: 12/05/18 Results: NEG CXR PPD to be Administered?: No - Smoking Cessation Smoking history: Current every day smoker Have you smoked in the past 12 months: Yes Aproximately how many cigarettes per day: 10 Cigars Per Day: 0 Hx Chewing Tobacco Use: No Initiated information on smoking cessation: Yes 'Breaking Loose' booklet given: 08/18/19 - Substance & Tx. History Hx Alcohol Use: Yes Hx Substance Use: Yes Substance Use Type: Alcohol, Cocaine, Heroin, Marijuana, Prescribed (METHADONE) Hx Substance Use Treatment: Yes ([facility]) - Substances abused Alcohol Substance route: Oral Frequency: Daily Amount used: LIQ- 2 PINTS, BEER- 2 SIX PK Age of first use: 11 Date of last use: 08/18/19 Marijuana/Hashish Substance route: Smoking Frequency: 1-2 times per week Amount used: 1 BLUNT Age of first use: 11 Date of last use: 08/16/19 Heroin Substance route: Inhalation Frequency: Daily Amount used: 2 BAGS Age of first use: 20 Date of last use: 08/16/19 Cocaine Substance route: Inhalation Frequency: Daily Amount used: 2 bags Age of first use: 20 Date of last use: 08/16/19 Admission Physical Exam S - Vital Signs Vital Signs: Vital Signs - 24 hr 08/18/19 20:55 Temperature 97.4 F L Pulse Rate 56 L Respiratory 18 Rate Blood Pressure 177/99 H - Physical General Appearance: Yes: Disheveled, Moderate Distress, Intoxicated (COHERENT, STABLE), Tremorous, Irritable, Other (FLUSHED MALODUROUS, UNKEPT) HEENTM: Yes: EOMI, Normocephalic, Normal Voice, ALEISHA, Pharynx Normal, Other (POOR DENTITION) Respiratory: Yes: Chest Non-Tender, Lungs Clear, Normal Breath Sounds, No Respiratory Distress, No Accessory Muscle Use Neck: Yes: No masses,lesions,Nodules, Supple, Trachea in good position Breast: Yes: Breasts Symetrical Cardiology: Yes: Regular Rhythm, Regular Rate, S1, S2 Abdominal: Yes: Non Tender, Soft, Increased Bowel Sounds, Protuberent, Surgical Scar Genitourinary: Yes: Hesitency (REPORTED) Back: Yes: Normal Inspection Musculoskeletal: Yes: Other (UNSTEADY AGIT 2/2 INTOXICATION) Extremities: Yes: Normal Capillary Refill, Normal Range of Motion, Non-Tender, Tremors, Swelling (LEFT GREATER THAN RIGHT LEG), Other (PTTING EDEMA OF BLE) Neurological: Yes: Fully Oriented, Alert, Motor Strength 5/5, Depressed Affect Integumentary: Yes: Dry, Warm Lymphatic: Yes: Within Normal Limits - Diagnostic (1) Cocaine dependence, uncomplicated Current Visit: Yes Status: Acute (2) Cannabis dependence, uncomplicated Current Visit: Yes Status: Acute (3) Opioid abuse, episodic Current Visit: Yes Status: Acute (4) Depressed affect Current Visit: Yes Status: Suspected (5) At risk for dehydration due to poor fluid intake Current Visit: Yes Status: Acute (6) Alcohol dependence with uncomplicated withdrawal Current Visit: Yes Status: Acute (7) Substance induced mood disorder Current Visit: Yes Status: Suspected (8) Substance-induced sleep disorder Current Visit: Yes Status: Suspected (9) GERD (gastroesophageal reflux disease) Current Visit: Yes Status: Chronic Qualifiers: Esophagitis presence: esophagitis presence not specified Qualified Code(s): K21.9 - Gastro-esophageal reflux disease without esophagitis (10) HTN (hypertension) Current Visit: Yes Status: Chronic Qualifiers: Hypertension type: essential hypertension Qualified Code(s): I10 - Essential (primary) hypertension (11) Methadone maintenance therapy patient Current Visit: Yes Status: Chronic (12) Nicotine dependence Current Visit: No Status: Chronic Qualifiers: Nicotine product type: cigarettes Substance use status: uncomplicated Qualified Code(s): F17.210 - Nicotine dependence, cigarettes, uncomplicated (13) Positive PPD Current Visit: Yes Status: Chronic (14) Non compliance w medication regimen Current Visit: Yes Status: Suspected (15) Homeless Current Visit: Yes Status: Suspected Comment: REPORTED Cleared for Admission S - Detox or Rehab S Level of Care: Medically Managed Detox Regimen/Protocol: Librium Claeared for Rehab Admission: No Breathalyzer - Breathalyzer Breathalyzer: 0 Urine Drug Screen - Test Device Lot number: [id number] Expiration date: 07/11/20 - Control Is test valid?: Yes - Results Drug screen NEGATIVE: No Urine drug screen results: FAIZA-Cocaine, FEN-Fentanyl, MOP-Opiates, MTD-Methadone Inpatient Rehab Admission - Rehab Decision to Admit Inpatient rehab admission?: No
[2019-08-18] MEDS ORDERED: MAGNESIUM CITRATE 300 ML BOTTLE PO PRN (21:22)
[2019-08-18] MEDS ORDERED: DICYCLOMINE HCL 10 MG CAPSULE PO PRN (21:22)
[2019-08-18] MEDS ORDERED: P-EPHED 60MG/TRIPROLIDI 2.5MG TABLET PO PRN (21:22)
[2019-08-18] MEDS ORDERED: METHOCARBAMOL 500 MG TABLET PO PRN (21:22)
[2019-08-18] MEDS ORDERED: MAGNESIUM HYDROX 2400MG/30ML ORAL SUSPENSION 30 ML CUP PO PRN (21:22)
[2019-08-18] MEDS ORDERED: MENTHOL/PHENOL 1 EACH UD MM PRN (21:22)
[2019-08-18] MEDS ORDERED: guaiFENesin 200 MG/10 ML 10 ML UNIT-DOSE CUPS PO PRN (21:22)
[2019-08-18] MEDS ORDERED: IBUPROFEN 400 MG TABLET (FP) PO PRN (21:22)
[2019-08-18] MEDS ORDERED: MAG HYDROX/AL HYDROX/SIMETH 30 ML UNIT-DOSE CUP PO PRN (21:22)
[2019-08-18] MEDS ORDERED: ACETAMINOPHEN 325 MG TABLET (FP) PO PRN ×2 (21:22)
[2019-08-18] MEDS ORDERED: BISMUTH SUBSALICYLATE 524 MG/30 ML UD PO PRN (21:22)
[2019-08-18] MEDS ORDERED: NICOTINE POLACRILEX 2 MG GUM BUC PRN (21:22)
[2019-08-18] MEDS ORDERED: chlordiazePOXIDE HCL 25 MG CAPSULE PO PRN (21:22)
[2019-08-18] MEDS ORDERED: ONDANSETRON *ODT* 4 MG TABLET SL ONE (21:45)
[2019-08-18] MEDS ORDERED: MELATONIN 5 MG TABLETS PO SCH (22:00)
[2019-08-18] MEDS: hydrOXYzine PAMOATE 25 MG CAPSULE (FP) PO PRN (22:21)
[2019-08-18] MEDS: THIAMINE HCL 100 MG TABLET (FP) PO SCH (22:21)
[2019-08-18] MEDS: LISINOPRIL 10 MG TABLET (FP) PO SCH (22:21)
[2019-08-19] MEDS: chlordiazePOXIDE HCL 25 MG CAPSULE PO SCH ×4 (06:18→22:12)
--- NOTE | 2019-08-19 10:09 | PN ---
S CIWA - CIWA Score Nausea/Vomitin-No Nausea/No Vomiting Muscle Tremors: 4-Moderate,w/Arms Extend Anxiety: 4-Mod. Anxious/Guarded Agitation: 3 Paroxysmal Sweats: 1-Minimal Palms Moist Orientation: 0-Oriented Tacttile Disturbances: 0-None Auditory Disturbances: 0-None Visual Disturbances: 0-None Headache: 0-None Present CIWA-Ar Total Score: 12 BHS Progress Note (SOAP) Subjective: Pt is a 58 y/o male admitted to detox for alcohol withdrawal sx. pt is aon Librium regimen. c/o Anxiety Tremors body aches Objective: 08/19/19 10:07 Vital Signs - 24 hr 08/18/19 08/18/19 08/18/19 20:55 22:28 22:29 Temperature 97.4 F L 97.7 F Pulse Rate 56 L 52 L Respiratory 18 18 Rate Blood Pressure 177/99 H 158/87 O2 Sat by Pulse 96 Oximetry (%) 08/19/19 05:41 Temperature 97.7 F Pulse Rate 60 Respiratory 18 Rate Blood Pressure 150/81 O2 Sat by Pulse 96 Oximetry (%) lab results pending alert o x 3 nad sitting up in bed for breakfast on rounding with patient. Assessment: 08/19/19 10:09 withdrawal sx Plan: cont detox increase po fluids maintain safety
--- NOTE | 2019-08-19 10:37 | CONSULT ---
[facility] Psychiatric Consult - Data Date of interview: 08/19/19 Admission source: [facility] Substance Abuse History: Smoking Cessation. Smoking history: Current every day smoker. Have you smoked in the past 12 months: Yes. Aproximately how many cigarettes per day: 10. Cigars Per Day: 0. Hx Chewing Tobacco Use: No. Initiated information on smoking cessation: Yes. 'Breaking Loose' booklet given: 08/18/19. - Substance & Tx. History. Hx Alcohol Use: Yes. Hx Substance Use: Yes. Substance Use Type: Alcohol, Cocaine, Heroin, Marijuana, Prescribed (METHADONE). Hx Substance Use Treatment: Yes ([facility]). - Substances abused. Alcohol. Substance route: Oral. Frequency: Daily. Amount used: LIQ- 2 PINTS, BEER- 2 SIX PK. Age of first use: 11. Date of last use: 08/18/19. Marijuana/Hashish. Substance route: Smoking. Frequency: 1-2 times per week. Amount used: 1 BLUNT. Age of first use: 11. Date of last use: 08/16/19. Heroin. Substance route: Inhalation. Frequency: Daily. Amount used: 2 BAGS. Age of first use: 20. Date of last use: 08/16/19. Cocaine. Substance route: Inhalation. Frequency: Daily. Amount used: 2 bags. Age of first use: 20. Date of last use: 08/16/19
[2019-08-19] MEDS: NICOTINE 14 MG/24 HOURS TOPICAL PATCH TD SCH (10:44)
[2019-08-19] MEDS: LISINOPRIL 10 MG TABLET (FP) PO SCH (10:44)
--- NOTE | 2019-08-19 10:44 | EKG ---
Test Reason : Blood Pressure : / mmHG Vent. Rate : 051 BPM Atrial Rate : 051 BPM P-R Int : 200 ms QRS Dur : 090 ms QT Int : 490 ms P-R-T Axes : 060 034 124 degrees QTc Int : 451 ms SINUS BRADYCARDIA WITH SINUS ARRHYTHMIA POSSIBLE LEFT ATRIAL ENLARGEMENT ABNORMAL ECG WHEN COMPARED WITH ECG OF 23-MAY-2017 19:36, NO SIGNIFICANT CHANGE WAS FOUND Confirmed by MD Durga, Ash ([id number]) on 08/19/2019 10:44:35 AM Referred By: MANISH CELESTIN Confirmed By:Ash Calixto MD
[2019-08-19] MEDS: PRENATAL VITAMINS W/ FOLIC ACID TABLET (FP) PO SCH (10:45)
[2019-08-19 11:14] LABS: HEMATOCRIT 38.6 % (35.4-49); HEMOGLOBIN 12.2 GM/dL (11.7-16.9); MCH 28.1 pg (25.7-33.7); MCHC 31.7 g/dl (32.0-35.9); MEAN CELL VOLUME 88.5 fl (80-96); MEAN PLT VOLUME 7.2 fl (7.5-11.1); PLATELET COUNT 338 K/MM3 (134-434); RBC 4.36 M/mm3 (4.00-5.60); WHITE BLOOD COUNT 4.6 K/mm3 (4.0-10.0)
[2019-08-19 11:27] LABS: ALBUMIN 2.8 g/dl (3.4-5.0); BILIRUBIN,TOTAL 0.2 mg/dL (0.2-1); BLOOD UREA NITROGEN 14.2 mg/dL (7-18); CALCIUM 8.7 mg/dL (8.5-10.1); CREATININE 0.9 mg/dL (0.55-1.3)
[2019-08-19] MEDS ORDERED: METHADONE HCL 10 MG TABLET PO ONE (11:52)
[2019-08-19] MEDS ORDERED: METHADONE 80 MG, METHADONE 30 MG PO ONE (11:52)
[2019-08-19] MEDS ORDERED: METHADONE HCL 10 MG TABLET ONE (12:17)
[2019-08-19] MEDS ORDERED: METHADONE HCL 40 MG DISPERSABLE TABLET ONE (12:18)
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
[2019-08-19] MEDS ORDERED: SUVOREXANT 10 MG TABLET PO PRN (22:00)
[2019-08-19] MEDS: THIAMINE HCL 100 MG TABLET (FP) PO SCH (22:12)
[2019-08-20] MEDS: chlordiazePOXIDE HCL 25 MG CAPSULE PO SCH ×5 (06:29→22:53)
[2019-08-20] MEDS: METHADONE HCL 40 MG DISPERSABLE TABLET PO SCH (07:08)
[2019-08-20] MEDS: LISINOPRIL 10 MG TABLET (FP) PO SCH (10:37)
[2019-08-20] MEDS: NICOTINE 14 MG/24 HOURS TOPICAL PATCH TD SCH (10:37)
[2019-08-20] MEDS: PRENATAL VITAMINS W/ FOLIC ACID TABLET (FP) PO SCH (10:37)
--- NOTE | 2019-08-20 11:06 | PN ---
[facility] CIWA - CIWA Score Nausea/Vomitin-No Nausea/No Vomiting Muscle Tremors: 2 Anxiety: 4-Mod. Anxious/Guarded Agitation: 2 Paroxysmal Sweats: No Perspiration Orientation: 0-Oriented Tacttile Disturbances: 0-None Auditory Disturbances: 0-None Visual Disturbances: 0-None Headache: 0-None Present CIWA-Ar Total Score: 8 BHS Progress Note (SOAP) Subjective: c/o Fatigue slightly drowsy at rounds reports intermittent sleep last night. Objective: 08/20/19 14:03 Vital Signs - 24 hr 08/19/19 08/20/19 08/20/19 16:42 05:36 09:55 Temperature 97.8 F 97.7 F Pulse Rate 53 L 58 L 50 L Respiratory 18 18 18 Rate Blood Pressure 135/83 123/69 O2 Sat by Pulse 96 96 Oximetry (%) 08/20/19 08/20/19 10:36 13:33 Temperature Pulse Rate 62 52 L Respiratory 20 Rate Blood Pressure 134/72 O2 Sat by Pulse 94 L Oximetry (%) Laboratory Tests 08/19/19 08/19/19 08/19/19 07:10 07:10 07:10 WBC 4.6 RBC 4.36 Hgb 12.2 Hct 38.6 MCV 88.5 MCH 28.1 MCHC 31.7 L RDW 14.0 Plt Count 338 MPV 7.2 L Sodium 142 Potassium 4.0 Chloride 106 Carbon Dioxide 29 Anion Gap 6 L BUN 14.2 Creatinine 0.9 Est GFR (CKD-EPI)AfAm 109.50 Est GFR (CKD-EPI)NonAf 94.48 Random Glucose 127 H Calcium 8.7 Total Bilirubin 0.2 AST 24 ALT 20 Alkaline Phosphatase 107 Total Protein 7.0 Albumin 2.8 L Syphilis Serology Non-reactive covid-19 result pending alert o x3 nad oob ambulating with steady gait Assessment: 08/20/19 14:04 withdrawal sx Plan: cont detox increase po fluids maintain safety
[2019-08-20] MEDS: THIAMINE HCL 100 MG TABLET (FP) PO SCH (22:53)
[2019-08-21] MEDS ORDERED: chlordiazePOXIDE HCL 10 MG CAPSULE PO PRN
[2019-08-21] MEDS: METHADONE HCL 40 MG DISPERSABLE TABLET PO SCH (06:14)
[2019-08-21] MEDS: chlordiazePOXIDE HCL 10 MG CAPSULE PO SCH ×4 (06:14→22:22)
[2019-08-21] MEDS: LISINOPRIL 10 MG TABLET (FP) PO SCH (10:36)
[2019-08-21] MEDS: NICOTINE 14 MG/24 HOURS TOPICAL PATCH TD SCH (10:36)
[2019-08-21] MEDS: PRENATAL VITAMINS W/ FOLIC ACID TABLET (FP) PO SCH (10:37)
--- NOTE | 2019-08-21 14:39 | PN ---
S CIWA - CIWA Score Nausea/Vomitin-No Nausea/No Vomiting Muscle Tremors: 3 Anxiety: 3 Agitation: 2 Paroxysmal Sweats: 1-Minimal Palms Moist Orientation: 0-Oriented Tacttile Disturbances: 0-None Auditory Disturbances: 0-None Visual Disturbances: 0-None Headache: 0-None Present CIWA-Ar Total Score: 9 BHS Progress Note (SOAP) Subjective: c/o fatigue/tiredness slightly sluggish but responds instantly to stimuli. Objective: 08/21/19 14:37 Vital Signs - 24 hr 08/20/19 08/20/19 08/21/19 16:35 21:00 07:24 Temperature 97.3 F L 97.1 F L 97.6 F Pulse Rate 53 L 51 L 55 L Respiratory 16 16 18 Rate Blood Pressure 142/80 150/89 O2 Sat by Pulse 95 95 Oximetry (%) 08/21/19 09:25 Temperature 97.5 F L Pulse Rate 60 Respiratory 18 Rate Blood Pressure 115/68 O2 Sat by Pulse 95 Oximetry (%) Laboratory Tests 08/18/19 08/19/19 08/19/19 21:30 07:10 07:10 WBC 4.6 RBC 4.36 Hgb 12.2 Hct 38.6 MCV 88.5 MCH 28.1 MCHC 31.7 L RDW 14.0 Plt Count 338 MPV 7.2 L Sodium Potassium Chloride Carbon Dioxide Anion Gap BUN Creatinine Est GFR (CKD-EPI)AfAm Est GFR (CKD-EPI)NonAf Random Glucose Calcium Total Bilirubin AST ALT Alkaline Phosphatase Total Protein Albumin Syphilis Serology Non-reactive COVID-19 (LANIE) Not detected 08/19/19 07:10 WBC RBC Hgb Hct MCV MCH MCHC RDW Plt Count MPV Sodium 142 Potassium 4.0 Chloride 106 Carbon Dioxide 29 Anion Gap 6 L BUN 14.2 Creatinine 0.9 Est GFR (CKD-EPI)AfAm 109.50 Est GFR (CKD-EPI)NonAf 94.48 Random Glucose 127 H Calcium 8.7 Total Bilirubin 0.2 AST 24 ALT 20 Alkaline Phosphatase 107 Total Protein 7.0 Albumin 2.8 L Syphilis Serology COVID-19 (LANIE) covid-19 not detected alert o x 3 nad oob ambulating with steady gait. Assessment: 08/21/19 14:38 withdrawal sx Plan: continue detox increase po fluids maintain safety
[2019-08-21] MEDS: THIAMINE HCL 100 MG TABLET (FP) PO SCH (22:22)
[2019-08-21] MEDS: hydrOXYzine PAMOATE 25 MG CAPSULE (FP) PO PRN (22:22)
[2019-08-22] MEDS: chlordiazePOXIDE HCL 10 MG CAPSULE PO SCH ×2 (07:07→17:50)
[2019-08-22] MEDS: METHADONE HCL 40 MG DISPERSABLE TABLET PO SCH (07:08)
[2019-08-22] MEDS: PRENATAL VITAMINS W/ FOLIC ACID TABLET (FP) PO SCH (10:35)
[2019-08-22] MEDS: NICOTINE 14 MG/24 HOURS TOPICAL PATCH TD SCH (10:36)
[2019-08-22] MEDS: LISINOPRIL 10 MG TABLET (FP) PO SCH (10:37)
[2019-08-22] MEDS: THIAMINE HCL 100 MG TABLET (FP) PO SCH (22:42)
[2019-08-22] MEDS ORDERED: SUVOREXANT 10 MG TABLET PO ONE (23:14)
[2019-08-22] MEDS ORDERED: chlordiazePOXIDE HCL 10 MG CAPSULE PO ONE (23:15)
[2019-08-22] MEDS: hydrOXYzine PAMOATE 25 MG CAPSULE (FP) PO PRN (23:27)
[2019-08-23] MEDS ORDERED: chlordiazePOXIDE HCL 10 MG CAPSULE PO ONE (05:00)
[2019-08-23] MEDS: METHADONE HCL 40 MG DISPERSABLE TABLET PO SCH (06:22)
[2019-08-23] MEDS: LISINOPRIL 10 MG TABLET (FP) PO SCH (09:39)
[2019-08-23 09:40] VITALS: BP 148/90; PULSE 55; TEMP 98
[2019-08-23] MEDS: PRENATAL VITAMINS W/ FOLIC ACID TABLET (FP) PO SCH (09:40)
[2019-08-23] MEDS: NICOTINE 14 MG/24 HOURS TOPICAL PATCH TD SCH (09:40)
--- NOTE | 2019-08-23 14:13 | DS ---
[facility] Detox Discharge Summary Admission Date: 08/18/19 Discharge Date: 08/23/19 - History Present History: Alcohol Dependence Additional Comments: 58 years old male admitted on 08/18/19 for alcohol withdrawal sx management treated with librium detox regiment seen by psychiatrist manjula rea for insomnia mr hernandez has completed the librium regiment and is tolerated well alert oriented x 3 speech clearly coherently cardiac [id number] regular rate rhythm respiratory clear lung sounds bilaterally on auscultation skin warm and dry Pertinent Past History: time for discharge 35 minutes mr rock may return to methadone program for hyperglycemia follow up - Physical Exam Results Vital Signs: Vital Signs Temperature 98.0 F 08/23/19 09:18 Pulse Rate 55 L 08/23/19 09:18 Respiratory Rate 17 08/23/19 09:18 Blood Pressure 148/90 08/23/19 09:18 O2 Sat by Pulse Oximetry (%) 95 08/23/19 06:00 Pertinent Admission Physical Exam Findings: alcohol withdrawal Vital Signs - 24 hr 08/22/19 08/22/19 08/23/19 16:43 20:56 06:00 Temperature 98.2 F 96.9 F L Pulse Rate 47 L 51 L Respiratory 18 16 Rate Blood Pressure 142/76 149/80 O2 Sat by Pulse 96 95 95 Oximetry (%) 08/23/19 08/23/19 07:00 09:18 Temperature 97.7 F 98.0 F Pulse Rate 52 L 55 L Respiratory 18 17 Rate Blood Pressure 158/81 148/90 O2 Sat by Pulse Oximetry (%) Laboratory Tests 08/18/19 08/19/19 08/19/19 21:30 07:10 07:10 WBC 4.6 RBC 4.36 Hgb 12.2 Hct 38.6 MCV 88.5 MCH 28.1 MCHC 31.7 L RDW 14.0 Plt Count 338 MPV 7.2 L Sodium Potassium Chloride Carbon Dioxide Anion Gap BUN Creatinine Est GFR (CKD-EPI)AfAm Est GFR (CKD-EPI)NonAf Random Glucose Calcium Total Bilirubin AST ALT Alkaline Phosphatase Total Protein Albumin Syphilis Serology Non-reactive COVID-19 (LANIE) Not detected 08/19/19 07:10 WBC RBC Hgb Hct MCV MCH MCHC RDW Plt Count MPV Sodium 142 Potassium 4.0 Chloride 106 Carbon Dioxide 29 Anion Gap 6 L BUN 14.2 Creatinine 0.9 Est GFR (CKD-EPI)AfAm 109.50 Est GFR (CKD-EPI)NonAf 94.48 Random Glucose 127 H Calcium 8.7 Total Bilirubin 0.2 AST 24 ALT 20 Alkaline Phosphatase 107 Total Protein 7.0 Albumin 2.8 L Syphilis Serology COVID-19 (LANIE) glucose serum elevation mr rock will follow up with [facility] - Treatment Hospital Course: Detox Protocol Followed, Detoxed Safely, Responded well, Discharged Condition Good, Rehab Referral Accepted Patient has Accepted a Rehab Referral to: [facility] with transportation arranged - Medication Discharge Medications: Ambulatory Orders Quetiapine Fumarate [Seroquel -] 50 mg PO HS 12/10/18 Lisinopril [Prinivil] 10 mg PO DAILY #30 tablet 12/16/18 - Diagnosis (1) Alcohol dependence with uncomplicated withdrawal Status: Acute (2) GERD (gastroesophageal reflux disease) Status: Chronic Qualifiers: Esophagitis presence: esophagitis presence not specified Qualified Code(s): K21.9 - Gastro-esophageal reflux disease without esophagitis (3) HTN (hypertension) Status: Chronic Qualifiers: Hypertension type: essential hypertension Qualified Code(s): I10 - Essential (primary) hypertension (4) Nicotine dependence Status: Acute Qualifiers: Nicotine product type: cigarettes Substance use status: in withdrawal Qualified Code(s): F17.213 - Nicotine dependence, cigarettes, with withdrawal (5) Positive PPD Status: Resolved (6) Substance induced mood disorder Status: Suspected (7) Hepatitis C Status: Chronic Qualifiers: Viral hepatitis chronicity: chronic Hepatic coma status: without hepatic coma Qualified Code(s): B18.2 - Chronic viral hepatitis C (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
== END 2019-08-23 10:45 | disposition other institution (70) | DRG 773 ==
LOC: YASAS 20:46 → Y5N DETOX 21:38
PROVIDERS: ADMIT Allergy & Immunology; ATTEND Allergy & Immunology
PROC: HZ2ZZZZ Detoxification Services for Substance Abuse Treatment (ICD-10-PCS; principal; 2019-08-18)
DX: F10.230 Alcohol dependence with withdrawal, uncomplicated (principal); F11.20 Opioid dependence, uncomplicated; F14.20 Cocaine dependence, uncomplicated; F12.20 Cannabis dependence, uncomplicated; F17.213 Nicotine dependence, cigarettes, with withdrawal; F19.282 Other psychoactive substance dependence with psychoactive substance-induced sleep disorder; F19.24 Other psychoactive substance dependence with psychoactive substance-induced mood disorder; F39 Unspecified mood [affective] disorder; I10 Essential (primary) hypertension; K21.9 Gastro-esophageal reflux disease without esophagitis; B18.2 Chronic viral hepatitis C; R73.9 Hyperglycemia, unspecified; R63.8 Other symptoms and signs concerning food and fluid intake; R76.11 Nonspecific reaction to tuberculin skin test without active tuberculosis; Z91.410 Personal history of adult physical and sexual abuse; Z90.81 Acquired absence of spleen; Z91.14 Patient's other noncompliance with medication regimen; Z56.0 Unemployment, unspecified; Z59.0 Homelessness
CPT/HCPCS: 36415; 80053; 85027; 86780; 93005; 93010; U0003

== ENCOUNTER 2020-10-21 12:36 | Inpatient (IN) | payer OTHER ==
[2020-10-21 14:45] VITALS: BMI 26.1
[2020-10-21] MEDS ORDERED: cloNIDine HCL 0.1 MG TABLET PO ONE (16:14)
[2020-10-21] MEDS ORDERED: BISMUTH SUBSALICYLATE 524 MG/30 ML PO PRN (16:16)
[2020-10-21] MEDS ORDERED: ACETAMINOPHEN 325 MG TABLET (FP) PO PRN ×2 (16:16)
[2020-10-21] MEDS ORDERED: IBUPROFEN 400 MG TABLET (FP) PO PRN (16:16)
[2020-10-21] MEDS ORDERED: MENTHOL/PHENOL 1 EACH UD MM PRN (16:16)
[2020-10-21] MEDS ORDERED: MAGNESIUM CITRATE 300 ML BOTTLE PO PRN (16:16)
[2020-10-21] MEDS ORDERED: METHOCARBAMOL 500 MG TABLET PO PRN (16:16)
[2020-10-21] MEDS ORDERED: MAGNESIUM HYDROX 2400MG/30ML ORAL SUSPENSION 30 ML CUP PO PRN (16:16)
[2020-10-21] MEDS ORDERED: ONDANSETRON *ODT* 4 MG TABLET SL PRN (16:16)
[2020-10-21] MEDS ORDERED: MAG HYDROX/AL HYDROX/SIMETH 30 ML UNIT-DOSE CUP PO PRN (16:16)
[2020-10-21] MEDS ORDERED: NICOTINE 10 MG CARTRIDGE (INHALER) IH PRN (16:16)
[2020-10-21] MEDS ORDERED: diazePAM 5 MG TABLET PO PRN (16:17)
[2020-10-21] MEDS ORDERED: cloNIDine HCL 0.1 MG TABLET ONE (16:25)
[2020-10-21] MEDS: diazePAM 5 MG TABLET PO SCH ×2 (18:17→23:03)
[2020-10-21] MEDS: hydrOXYzine PAMOATE 25 MG CAPSULE (FP) PO PRN ×2 (18:18→23:03)
[2020-10-21] MEDS: LISINOPRIL 10 MG TABLET PO SCH (18:18)
[2020-10-21] MEDS: THIAMINE HCL 100 MG TABLET (FP) PO SCH (23:03)
[2020-10-21] MEDS: MELATONIN 5 MG TABLETS PO SCH (23:04)
[2020-10-22] MEDS: diazePAM 5 MG TABLET PO SCH ×4 (08:09→22:52)
[2020-10-22] MEDS: methaDONE HCL 40 MG DISPERSABLE TABLET PO SCH (10:59)
[2020-10-22] MEDS: LISINOPRIL 10 MG TABLET PO SCH (11:00)
[2020-10-22] MEDS: PRENATAL VITAMINS W/ FOLIC ACID TABLET (FP) PO SCH (11:00)
[2020-10-22] MEDS: NICOTINE 7 MG/24 HOURS TOPICAL PATCH TD SCH (11:03)
[2020-10-22 13:02] LABS: HEMATOCRIT 42.4 % (35.4-49); HEMOGLOBIN 14.5 GM/dL (11.7-16.9); MCH 30.1 pg (25.7-33.7); MCHC 34.1 g/dl (32.0-35.9); MEAN CELL VOLUME 88.1 fl (80-96); MEAN PLT VOLUME 6.8 fl (7.5-11.1); PLATELET COUNT 400 10^3/uL (134-434); RBC 4.81 M/mm3 (4.00-5.60); RDW 13.9 % (11.9-15.9); WHITE BLOOD COUNT 4.7 K/mm3 (4.0-10.0)
[2020-10-22 13:28] LABS: ALBUMIN 2.9 g/dl (3.4-5.0); BLOOD UREA NITROGEN 11.3 mg/dL (7-18)
[2020-10-22 13:32] LABS: BILIRUBIN,TOTAL 0.7 mg/dL (0.2-1)
[2020-10-22 13:33] LABS: TOT PROT 8.1 g/dl (6.4-8.2)
[2020-10-22] MEDS ORDERED: LISINOPRIL 10 MG TABLET PO ONE (13:33)
[2020-10-22] MEDS: MELATONIN 5 MG TABLETS PO SCH (22:51)
[2020-10-22] MEDS: THIAMINE HCL 100 MG TABLET (FP) PO SCH (22:51)
[2020-10-23] MEDS: diazePAM 5 MG TABLET PO SCH ×2 (05:11→20:58)
[2020-10-23] MEDS: methaDONE HCL 40 MG DISPERSABLE TABLET PO SCH (05:12)
[2020-10-23] MEDS ORDERED: LISINOPRIL 10 MG TABLET PO SCH (10:00)
[2020-10-23] MEDS: LISINOPRIL 10 MG TABLET PO SCH (10:34)
[2020-10-23] MEDS: PRENATAL VITAMINS W/ FOLIC ACID TABLET (FP) PO SCH (10:34)
[2020-10-23] MEDS: NICOTINE 7 MG/24 HOURS TOPICAL PATCH TD SCH (10:36)
[2020-10-23] MEDS: THIAMINE HCL 100 MG TABLET (FP) PO SCH (22:51)
[2020-10-23] MEDS: MELATONIN 5 MG TABLETS PO SCH (22:51)
[2020-10-24] MEDS: methaDONE HCL 40 MG DISPERSABLE TABLET PO SCH (05:39)
[2020-10-24] MEDS ORDERED: diazePAM 5 MG TABLET PO ONE ×2 (06:00→09:53)
[2020-10-24] MEDS ORDERED: methaDONE HCL 10 MG TABLET (FOR DETOX USE ONLY) PO ONE (09:52)
[2020-10-24] MEDS: LISINOPRIL 10 MG TABLET PO SCH (10:12)
[2020-10-24] MEDS: PRENATAL VITAMINS W/ FOLIC ACID TABLET (FP) PO SCH (10:12)
[2020-10-24] MEDS: NICOTINE 7 MG/24 HOURS TOPICAL PATCH TD SCH (10:13)
[2020-10-24] MEDS: MELATONIN 5 MG TABLETS PO SCH (22:18)
[2020-10-24] MEDS: THIAMINE HCL 100 MG TABLET (FP) PO SCH (22:18)
[2020-10-25] MEDS: methaDONE HCL 40 MG DISPERSABLE TABLET PO SCH (05:20)
[2020-10-25] MEDS ORDERED: diazePAM 5 MG TABLET PO ONE (06:00)
[2020-10-25 09:21] VITALS: BP 159/87; PULSE 53; TEMP 97.1
[2020-10-25] MEDS: NICOTINE 7 MG/24 HOURS TOPICAL PATCH TD SCH (10:29)
[2020-10-25] MEDS: PRENATAL VITAMINS W/ FOLIC ACID TABLET (FP) PO SCH (10:29)
[2020-10-25] MEDS: LISINOPRIL 10 MG TABLET PO SCH (10:29)
== END 2020-10-25 13:15 | disposition other institution (70) | DRG 773 ==
LOC: YASAS 12:36 → Y3N 17:07
PROVIDERS: ADMIT Allergy & Immunology; ATTEND Allergy & Immunology
PROC: HZ2ZZZZ Detoxification Services for Substance Abuse Treatment (ICD-10-PCS; principal; 2020-10-21)
DX: F10.230 Alcohol dependence with withdrawal, uncomplicated (principal); F11.20 Opioid dependence, uncomplicated; F14.20 Cocaine dependence, uncomplicated; F17.210 Nicotine dependence, cigarettes, uncomplicated; I10 Essential (primary) hypertension; B18.2 Chronic viral hepatitis C; R76.11 Nonspecific reaction to tuberculin skin test without active tuberculosis
CPT/HCPCS: 36415; 80053; 85027; 86780; 93005; 93010; C9803; J0735; U0003; U0005